=== PATIENT | female | born 1970 | race Caucasian/White ===

== ENCOUNTER 2024-05-02 10:33 | Inpatient (IN) | payer OTHER, SELFPAY ==
[2024-05-02] VITALS (12 sets, daily range): BP systolic 111–136; BP diastolic 58–105; BMI 25.8
[2024-05-02 04:22] LABS: % Basophils 0.6 % (0-2); % Eosinophils 0.7 % (0-6); % Immature Granulocytes 1.4 % (0-0.5); % Lymphocytes 10.9 % (20.5-51.1); % Neutrophils 81.4 % (42.2-75.2); Absolute Basophils 0.1 10^3/uL (0-0.2); Absolute Eosinophils 0.2 10^3/uL (0-0.7); Absolute Immature Granulocytes 0.3 10^3/uL (0-0.05); Absolute Lymphocytes 2.3 10^3/uL (1.2-3.4); Absolute Monocytes 1.1 10^3/uL (0.1-0.6); Absolute Neutrophils 17.1 10^3/uL (1.4-6.5); Hematocrit 43.9 % (37.0-47.0); Hemoglobin 15.7 g/dL (12.0-16.0); Mean Corp Hgb Conc. 35.8 g/dL (33.0-37.0); Mean Corpuscular Hgb 30.5 pg (27.0-31.0); Mean Corpuscular Volume 85.2 fL (81.0-99.0); Mean Platelet Volume 9.3 fL (7.4-10.4); Nucleated Red Blood Cells % 0 %; Platelet Count 310 10^3/uL (130-400); Red Blood Cell Count 5.15 10^6/uL (4.20-5.40); Red Cell Dist. Width 13.5 % (11.5-14.5); White Blood Cell Count 21.1 10^3/uL (4.8-10.8)
[2024-05-02] MEDS: ZOFRAN 4 MG IV ×3 (04:23→12:56)
[2024-05-02] MEDS: DILAUDID 0.5 MG IV (04:25)
[2024-05-02] MEDS: NSS 1000 IV (04:27)
[2024-05-02] MEDS: PROTONIX IV 40 MG IV (04:28)
[2024-05-02 04:38] LABS: ALT (SGPT) 60 U/L (0-35); AST (SGOT) 47 U/L (14-36); Albumin 5.1 g/dl (3.5-5.0); Alkaline Phosphatase 99 U/L (38-126); Blood Urea Nitrogen 12 mg/dl (7-17); Calcium 10.6 mg/dl (8.4-10.2); Carbon Dioxide 17 mmol/L (22-30); Chloride 108 mmol/L (98-107); Estimated Creatinine Clearance 68 ml/min; Glucose 149 mg/dl (70-99); Lipase 156 U/L (23-300); Potassium 3.9 mmol/L (3.5-5.1); Sodium 144 mmol/L (135-145); Total Protein 7.5 g/dl (6.3-8.2); eGFR > 60.00
[2024-05-02 04:46] LABS: Troponin I < 0.012 ng/ml
[2024-05-02] MEDS: DILAUDID 1 MG IV ×2 (05:33→06:24)
[2024-05-02 06:00] LABS: Lactic Acid 3.8 mmol/L (0.7-2.0)
--- NOTE | 2024-05-02 06:16 | ED.GENMED ---
History of Present Illness
General
Chief Complaint: Abdominal Pain
Source: patient
Time Seen by Provider: 05/02/24 06:06
History of Present Illness
History of Present Illness:
54-year-old female presents to the emergency room complaining of abdominal pain, nausea and vomiting. Pain is located in the epigastric region and radiates to her back. Patient states she was asleep and was awoken from sleep by the pain. The pain
is severe. Patient has a history of abdominal pain. Ultimately she was diagnosed with a large ovarian cyst that was resected in February. Patient did not take anything for pain. Patient also has a history of an appendectomy. Nothing seems to make
the pain better or worse.
Past History
Past History
ED Past Medical History: None
Social History
Tobacco: Non-smoker
Alcohol: Occasional
Personal: Single
Living: with family
Phy Exam
Physical Exam
Physical Exam:
General: Awake, Alert, Oriented X3. Patient appears uncomfortable
Vitals: unremarkable
Head: Atraumatic
Eyes: Pupils equal, EOMI
Throat: Airway intact, no exudates, dry mucosa
Neck: Trachea midline
Lungs: Clear and equal b/l
Heart: Regular rate, no murmurs
Abd: Soft, tender to palpation epigastric and right upper quadrant, No pulsatile mass
Neuro: Nonfocal
Skin: Warm, dry, no rash
Extremities: pulses equal b/l, no edema
Course
Orders/Labs/Results
Orders:
Orders
05/02/24 03:21
ECG [Electrocardiogram (*1)] Urgent
Reason for Study: Abdominal Pain
EKG- Treatment ONCE
05/02/24 03:35
IV Insert/Care/Rem.- Treatment PRN
05/02/24 04:12
Complete Blood Count/With Diff Urgent
Comprehensive Metabolic Panel Urgent
Lipase Urgent
Troponin I Urgent
05/02/24 04:15
0.9% Sodium Chloride 1000 ml [Nss] 1,000 ml IV BOLUS
HYDROmorphone [Dilaudid] 0.5 mg IV NOW STA
Ondansetron Injectable [Zofran] 4 mg IV NOW STA
Pantoprazole [Protonix IV] 40 mg IV NOW STA
05/02/24 05:28
US Abdomen Complete/Upper Urgent
Comment:
Reason For Exam: upper abdominal pain
05/02/24 05:29
HYDROmorphone [Dilaudid] 1 mg IV NOW STA
05/02/24 05:39
Lactic Acid Urgent
05/02/24 06:15
HYDROmorphone [Dilaudid] 1 mg IV NOW STA
Lactated Ringers [Lr] 1,000 ml IV BOLUS
Ondansetron Injectable [Zofran] 4 mg IV NOW STA
05/02/24 07:50
CT Abd/pelvis W Iv Cont Urgent
Comment:
Reason For Exam: upper abdominal pain
Abnormal Lab Results
05/02/24 05/02/24
04:12 05:39
WBC 21.1 H 10^3/uL
(4.8-10.8)
Abs Immat Gran (auto) 0.3 H 10^3/uL
(0-0.05)
Absolute Neuts (auto) 17.1 H 10^3/uL
(1.4-6.5)
Absolute Monos (auto) 1.1 H 10^3/uL
(0.1-0.6)
Immature Gran % 1.4 H %
(0-0.5)
Neutrophils % 81.4 H %
(42.2-75.2)
Lymphocytes % 10.9 L %
(20.5-51.1)
Chloride 108 H mmol/L
(98-107)
Carbon Dioxide 17 L mmol/L
(22-30)
Glucose 149 H mg/dl
(70-99)
Lactic Acid 3.8 H mmol/L
(0.7-2.0)
Calcium 10.6 H mg/dl
(8.4-10.2)
AST 47 H U/L
(14-36)
ALT 60 H U/L
(0-35)
Albumin 5.1 H g/dl
(3.5-5.0)
05/02/24 04:12
05/02/24 04:12
Vital Signs
Initial and Last Documented VS:
Initial Vital Signs
Temp Pulse Resp BP Pulse Ox
98.0 F 90 20 127/84 98
05/02/24 03:17 05/02/24 03:17 05/02/24 03:17 05/02/24 03:17 05/02/24 03:17
Last Documented Vital Signs
Temp Pulse Resp BP Pulse Ox
98.0 F 73 21 111/70 97
05/02/24 03:17 05/02/24 08:00 05/02/24 08:00 05/02/24 08:00 05/02/24 08:00
MDM/Problems Addressed
Differential Diagnosis Includes:
cholecystitis, pancreatitis, SBO, gastritis, gastroparesis
MDM/Problems Addressed:
Patient presents with significant upper upper abdominal pain rating to the back. Fairly sudden onset at 130. My initial concern was that patient may have acute cholecystitis or pancreatitis. Patient's labs show a significantly elevated white
blood cell count of 21,000. Chemistry show a mildly low bicarb, elevated lactate and elevated AST and ALT. Troponin is normal. Lipase is normal. Ultrasound did not show any abnormal findings. CT was then ordered. This also is negative for any
acute pathology. Patient has some improvement in her pain after multiple doses of Dilaudid but continues to have some abdominal pain as well as nausea. Patient has significant nausea vomiting abdominal pain without clear etiology apparent based on
testing here in the emergency room. Given her persistent symptoms we will discuss hospitalization with the hospitalist. Patient states she has had some chronic abdominal pain for which a source has not been identified. This may be an exacerbation
of a more chronic issue but given abnormal labs patient will be hospitalized for further treatment evaluation.
Based on unremarkable imaging I did inquire about the patient's medical marijuana use with the thought that perhaps the patient could be suffering from cannabis hyperemesis syndrome. Patient states she uses a tincture and only at night to the seems
and unlikely cause based upon that amount of marijuana use. She seemed offended that I inquired about her marijuana use despite my attempting to explain why I was asking.
Chronic conditions affecting care: Previous abdomnial surgery
*Radiology
Radiology exam reviewed: radiology read reviewed
*Pulse Oximetry
Patient hypoxic: no
*EKG
Interpreted by ED Provider?: Yes
Interpretation: normal
Heart Rate: 74
Rate: normal
Rhythm: sinus
[place]: normal axis
Interval: normal interval
QRS Pattern: normal QRS
Ischemia: no ischemia
*Od Grinder Operator Interpretation
Rate: normal
Interpretation: normal
Rhythm: sinus
*Critical Care Note
Total Time (30-74mins, 75-104mins- exclusive of procedures): Not Applicable
ED Attending Note
-
Portions of this chart may have been created with voice recognition software.� Occasional wrong word or��sound alike� substitutions may have occurred due to the inherent limitations of voice recognition software.
Discharge Plan
Departure
Patient Disposition: Admit
Date of Disposition: 05/02/24
Time of Disposition: 09:23
Presentation/result/management discussed w/ accepting MD/DO: Hospitalist
Condition: Fair
Discharge Problem:
Abdominal pain, Acute dehydration, Leukocytosis
Prescriptions:
No Action
omeprazole [Prilosec] 40 mg Capsule,Delayed Release(Dr/Ec)
40 mg PO DAILY
alprazolam [Xanax] 0.25 mg Tablet
0.25 mg PO DAILY
buspirone [BuSpar] 10 mg Tablet
10 mg PO DAILY
Referrals:
Suyapa Howard MD [Family Provider] -
Interventions
Interventions:
*Risk Screen - Suicide Last Done: 05/02/24 03:17
*General Assessment Last Done: 05/02/24 03:17
*Neglect/Abuse Screening Last Done: 05/02/24 05:20
ED- Fall Risk Assessment Last Done: 05/02/24 04:15
*ED COVID-19 Vaccine History Last Done: 05/02/24 05:20
CW-Actzhf-Ebkurtqurk Assessment Last Done: 05/02/24 04:01
Discharge Date and Time
Print Language: FRISIAN
[2024-05-02] MEDS: LR 1000 IV (06:24)
--- NOTE | 2024-05-02 11:31 | HPS.HSE ---
Addendum entered and electronically signed by Isaac Roy MD 05/03/24 16:12:
abd pain, no acute findings on ctap
lactic acidosis relatede to dehydration, give ivf
gi to eval possible egd. npo after midnight
ivf and antiemetics
Original Note:
Family Physician
-
Family Physician: Nicoel Siegel PA-C
Chief Complaint
-
Abdominal pain, Nausea and vomiting
History of Present Illness
54 year-old female with history of anxiety/depression, PTSD, chronic insomnia, GERD, migraines who presents to the ED with abdominal pain, nausea and vomiting. She woke up this morning drenched in sweats, with some abdominal discomfort and nausea.
Symptoms worsened with increased nausea and retching with minor clear/mucoid vomitus.
She had 5 episodes of non-bloody, loose bowel movements yesterday morning with occasional mucus in stool, and two episodes today.
She reports a chronic, episodic right upper quadrant pain for many years. She has been evaluated by multiple gastroenterologists and had one upper endoscopy with suspicious dudenal biopsy, although patient does not recall details and has not
followed up due to health events/insurance changes. She had a recent right ovarian cyst removed 8 weeks ago, and was told there some adhesions oif the cyst to her bladder and bowel. She was also treated for diverticulitis at the time.
She takes BuSpar for panic disorder, occasional medical marijuana for insomnia and PTSD.
At the time of my evaluation, her symptoms were controlled with antiemetics and analgesics. She denies fever, chest pain/palpitations, bloody stool, or urinary complaints.
Medical History
Past Medical History
Past Medical History: Reports GERD, Psychiatric (PTSD, panic disorder) and Other (migraine)
Past Surgical History: Reports Appendectomy, Brain (craniotomy for meningioma), Gynocological (vaginal hysterectomy, R ovarian cystectomy), Orthopedic (cervical discectomy/spinal fusion) and Tonsilectomy
Social History
Tobacco: Non-smoker
Alcohol: None
Drug: Marijuana (medical marijuana)
Living: With Family
Employment: Employed
Family History
Family History: Not pertinent
Allergies / Home Medications
Allergies reflects when Allergies were last updated in That{img}.
Home Medications with original date entered in That{img}
Allergy/Medication List:
Allergies
Allergy/AdvReac Type Severity Reaction Status Date / Time
levofloxacin [From Levaquin] Allergy Intermediate Rash Verified 05/02/24 03:17
lorazepam [From Ativan] AdvReac Intermediate Unknown Verified 05/02/24 03:17
Home Medications
alprazolam 0.25 mg tablet (Xanax) 0.25 mg PO BIDPRN PRN anxiety 05/02/24
buspirone 10 mg tablet 10 mg PO DAILY Mental Health/Anxiety 05/02/24
buspirone 10 mg tablet 10 mg PO HSPRN PRN stress 05/02/24
omeprazole 40 mg capsule,delayed release 40 mg PO DAILY Gastrointestinal Issue 05/02/24
therapeutic multivitamin 1 tab PO DAILY Supplement 05/02/24
Review of Systems
-
History Source: Patient
Constitutional: Denies Fever or Chills
EENT: Reports Other (difficulty swallowing); Denies Sore Throat
Respiratory: Denies Hemoptysis or Trouble Breathing
Cardiac: Denies Chest Pain, Diaphoresis or Palpitations
Abdomen/GI: Reports Abdominal Pain and Nausea
: Denies Dysuria, Frequency, Difficulty Voiding, Urgency or Bleeding
Physical Exam
Vital Signs
Vital Signs
Temp Pulse Resp BP Pulse Ox
98.0 F 75 18 111/70 98
05/02/24 03:17 05/02/24 10:45 05/02/24 10:45 05/02/24 08:00 05/02/24 10:45
Physical Exam
General: Well Developed and Well Nourished
HEENT: NormoCephalic, Anicteric, Moist mucous membranes and Atraumatic
Respiratory: Clear and Non Labored Respirations; No Wheezes, Rales, Rhonchi or Crackles
Cardiac: S1/S2 and Regular Rhythm; No Murmur, Rub or Calf Tenderness
GI: Soft, Non Distended, Normal Bowel Sounds, Tender (RUQ) and No Hepatosplenomegaly
Skin: Warm and Dry
Neuro: Awake and Alert
Psych: Anxious (tearful)
Laboratory Results
-
05/02/24 04:12
05/02/24 04:12
Laboratory Results
Lactic Acid 3.8 mmol/L (0.7-2.0) H 05/02/24 05:39
Total Bilirubin 1.0 mg/dl (0.2-1.3) 05/02/24 04:12
AST 47 U/L (14-36) H 05/02/24 04:12
ALT 60 U/L (0-35) H 05/02/24 04:12
Alkaline Phosphatase 99 U/L (38-126) 05/02/24 04:12
Troponin I < 0.012 ng/ml 05/02/24 04:12
Lipase 156 U/L (23-300) 05/02/24 04:12
Impression/Plan
-
IMPRESSION: 54 year old female with history of GERD, chronic unspecified abd pain, who presented to the ED with RUQ/epigastric abdominal pain, nausea and vomiting.
PLAN:
Abdominal pain, nausea, vomiting:
Viral gastroenteritis vs pancreatitis, vs gastritis
Elevated WBC with left shift, likely reactive
Abd pel CT unremarkable
Abdominal US unremarkable
Normal Lipase
- Zofran for nausea
- IVF, analgesics
- GI consult
Lactic acidosis:
Secondary to omeprazole adverse effect, vs other cause
Lactate 3.8, Anion gap 19
- Repeat lactate
- Hold omeprazole
Panic disorder:
- Continue Buspar, PRN alprazolam
GERD:
- Omaprazole held for elevated lactate
- Devaughn give famotidine
DVT ppx: Lovenox
Code Status: DNR
[2024-05-02] MEDS: BUSPAR PO (12:21)
[2024-05-02 12:27] LABS: Lactic Acid 1.3 mmol/L (0.7-2.0)
--- NOTE | 2024-05-02 13:19 | CON.GI ---
Addendum entered and electronically signed by Jonelle Conn MD 05/02/24 15:40:
I saw and examined the patient.
The LOCOMOTIVE OPERATOR or PA's note was reviewed and I agree with the note.
Comment:
This patient is a 54-year-old woman with a history of GERD, panic disorder, migraines who was admitted with abdominal pain, nausea and vomiting. On admission she did have an elevated white count and lactate. She did have a normal ultrasound. She
does have a history of abdominal pain in the past and has seen many GIs. She actually had a endoscopy done in [place] in July 2023 when she used to live there. I did review the pathology report and it did show a hyperplastic polyp in
the bulb with noted focal atypia. This polyp had borderline adenomatous changes and it appeared to only have been biopsied. She does also have a history of chronic dysphagia. Currently she has no pain.
abd: soft nontender
impression:
chronic abdominal pain
dysphagia
hx of Duodenal hyperplastic lesion with atypia biopsied
plan:
egd tomorrow
repeat lfts
consider outpatient manometry for dysphagia
Original Note:
Consultation
-
Date/Time Consultation Requested: 05/02/24 1130
Date/Time Consultation Performed: 05/02/24 1320
Requesting Provider: yane zuñiga MD
Performing Provider: WALLACE Armstrong, Jonelle conn MD
Reason for Consultation: abdominal pain
Medical History
Chief Complaint / HPI
Chief Complaint: abdominal pain
History of Present Illness:
Pt is a 54yo with hx GERD, migraines, PTSD, panic disorder, craniotomy for meningioma, hysterectomy, cervical discectomy/fusion, tonsillectomy with onset of abdominal pain with nausea and vomiting. On admission noted with WBC 21,100, lactate 3.8
with normalization, AST 47, aLT 60, alk phos 99 and lipase 156. On admission US completed with unremarkable finding with normal liver and CBD. Ct with hepatic steatosis and diverticulosis no acute finding. In reviewing with patient she has had
multiple GI evaluation with ongoing abdominal pain. She report chronic pressure pain 3/10 then up to 10/10 on admission with wrap around pain to back. She admits to decreased appetite but now wt loss. She did have EGD in [place] in
July of 2023 report not reviewed but path of duodenal bulb gastric metaplasia, mucin loss with focal atypia and borderline adenomatous changes with area of pseudostratification and mild nuclear enlargement. stomach bx neg H pylori.
She otherwise report chronic dysphagia since cervical fusion surgery, GERD on PPI with hx Hiatal hernia, nausea and dry heaves with some difficutly with vomiting and loose stools. She also report shaking chill with pain at onset. No NSAID use,
No new medications or GPL1 use.
Past Medical History
Past Medical History: Cancer (brain meningioma), GERD, Psychiatric (depression/anxiety, PTSD, panic disorder) and Other (insomnia, migraines, hiatal hernia)
Past Surgical History: Appendectomy (at age 2), Brain (craniotomy), Gynecological (vaginal hysterectomy, R ovarian cystectomy with KIERRA 8 weeks ago at [place]), Orthopedic (cervical discectomy/spinal fusion) and Tonsilectomy
Social History
Tobacco: Non-Smoker
Alcohol: None
Drug: Marijuana
Living: With Family
Employment: Employed (currently starting new job but on hold with recent surgery )
Family History
Family History: Other (father with adenomatous polyps)
Allergies / Home Medications
Allergy/AdvReac Type Severity Reaction Status Date / Time
levofloxacin [From Levaquin] Allergy Intermediate Rash Verified 05/02/24 03:17
lorazepam [From Ativan] AdvReac Intermediate Unknown Verified 05/02/24 03:17
�Medication �Instructions �Recorded
alprazolam 0.25 mg tablet (Xanax) 0.25 mg PO BIDPRN PRN anxiety 05/02/24
buspirone 10 mg tablet 10 mg PO DAILY Mental 05/02/24
Health/Anxiety
buspirone 10 mg tablet 10 mg PO HSPRN PRN stress 05/02/24
omeprazole 40 mg capsule,delayed 40 mg PO DAILY Gastrointestinal 05/02/24
release Issue
therapeutic multivitamin 1 tab PO DAILY Supplement 05/02/24
Review of Systems
-
History Source: Patient
Constitutional: Reports Fatigue
EENT: Reports No Symptoms
Respiratory: Reports No Symptoms
Cardiac: Reports No Symptoms
Abdomen/GI: Reports Abdominal Pain, Nausea, Vomiting (small amounts ) and Diarrhea
: Reports No Symptoms
Musculoskeletal: Reports No Symptoms
Skin: Reports No Symptoms
Neurological: Reports No Symptoms
Endocrine: Reports No Symptoms
Hematologic/Lymphatic: Reports No Symptoms
Vital Signs
Temp Pulse Resp BP Pulse Ox
98.3 F 83 20 129/72 98
05/02/24 11:57 05/02/24 11:57 05/02/24 11:57 05/02/24 11:57 05/02/24 10:45
Physical Exam
Exam
General: Well Developed, Well Nourished and No Apparent Distress
HEENT: Normocephalic and Anicteric
Respiratory: Clear
Cardiac: Regular Rhythm
GI: Soft, Non Distended and Tender (RUQ with guarding )
Musculoskeletal: No Clubbing and No Cyanosis
Skin: Warm and Dry
Neuro: Awake, Alert and AO x 3
Psych: Other (anxious with ongoing symptoms )
Results
WBC 21.1 10^3/uL (4.8-10.8) H 05/02/24 04:12
Hgb 15.7 g/dL (12.0-16.0) 05/02/24 04:12
Hct 43.9 % (37.0-47.0) 05/02/24 04:12
MCV 85.2 fL (81.0-99.0) 05/02/24 04:12
Plt Count 310 10^3/uL (130-400) 05/02/24 04:12
Absolute Neuts (auto) 17.1 10^3/uL (1.4-6.5) H 05/02/24 04:12
Sodium 144 mmol/L (135-145) 05/02/24 04:12
Potassium 3.9 mmol/L (3.5-5.1) 05/02/24 04:12
Chloride 108 mmol/L (98-107) H 05/02/24 04:12
Carbon Dioxide 17 mmol/L (22-30) L 05/02/24 04:12
BUN 12 mg/dl (7-17) 05/02/24 04:12
Creatinine 0.8 mg/dL (0.6-1.0) 05/02/24 04:12
Calcium 10.6 mg/dl (8.4-10.2) H 05/02/24 04:12
Total Bilirubin 1.0 mg/dl (0.2-1.3) 05/02/24 04:12
AST 47 U/L (14-36) H 05/02/24 04:12
ALT 60 U/L (0-35) H 05/02/24 04:12
Alkaline Phosphatase 99 U/L (38-126) 05/02/24 04:12
Lipase 156 U/L (23-300) 05/02/24 04:12
Diagnostic Image Results:
05/02/24 Unremarkable abdominal ultrasound.
05/02/24 CT Abd/pelvis W Iv Cont
No acute findings in the abdomen or pelvis.
Hepatic steatosis.
Colonic diverticulosis.
Prior GI Procedures:
EGD:
Colonoscopy:
Assessment / Plan
-
Pt is a 54yo with hx GERD, migraines, PTSD, panic disorder, craniotomy for meningioma, hysterectomy, cervical discectomy/fusion, tonsillectomy with onset of abdominal pain with nausea and vomiting. On admission noted with WBC 21,100, lactate 3.8
with normalization, AST 47, aLT 60, alk phos 99 and lipase 156. On admission US completed with unremarkable finding with normal liver and CBD. Ct with hepatic steatosis and diverticulosis no acute finding. In reviewing with patient she has had
multiple GI evaluation with ongoing abdominal pain. She report chronic pressure pain 3/10 then up to 10/10 on admission with wrap around pain to back. She admits to decreased appetite but now wt loss. She did have EGD in [place] in
July of 2023 report not reviewed but path of duodenal bulb gastric metaplasia, mucin loss with focal atypia and borderline adenomatous changes with area of pseudostratification and mild nuclear enlargement. stomach bx neg H pylori.
-RUQ pain acute on chronic
-leukocytosis
-elevated lactate on admission now improved
-hx EGD 07/2023 with path of duodenal bulb gastric metaplasia, mucin loss with focal atypia and borderline adenomatous changes was due follow up in January not completed
-hx HH
-recent ovarian cyst removal with KIERRA at [place] 8 weeks ago
-chronic dysphagia since cervical surgery
other med problems:
-GERD
-migraines
-PTSD
-panic disorder
-craniotomy for meningioma
-hysterectomy
- cervical discectomy/fusion
- tonsillectomy
-hepatic steatosis on imaging
PLAN:
etiology of abdominal pain related to biliary etiology mild LFT elevation though stable US and CT, PUD, vs other
repeat LFT's and lipase in AM
if LFT's remain elevated consider hepatitis/ OP liver serologies
plan for EGD in AM for follow up for focal atypia changes in EGD in [place] in duodenal bulb
diet as tolerated NPO in AM
pain control
PPI change to pepcid per hospitalist service with elevated lactate level
antiemetics as needed
pt also with some stress/anxiety-with trying to start new job support given
OP follow up for fatty liver
-
-
Thank you for consultation and allowing me to participate in the patient's care. Please call the numerical control machine operator GI physician during the after hours with any questions or concerns.
[2024-05-02] MEDS: DILAUDID 0.25 MG IV (19:40)
[2024-05-02] MEDS: PEPCID 20 MG PO (22:23)
[2024-05-03 07:43] VITALS: BP 116/71
[2024-05-03] MEDS: ZOFRAN 4 MG IV ×3 (08:14→23:08)
[2024-05-03] MEDS: DILAUDID 0.25 MG IV ×2 (08:14→10:21)
[2024-05-03] MEDS: THERAGRAN PO (08:17)
[2024-05-03] MEDS: BUSPAR PO (08:17)
[2024-05-03 09:29] VITALS: BP 137/72; BP_SYST 22
[2024-05-03 09:44] VITALS: BP 135/89; BP_SYST 21
--- NOTE | 2024-05-03 09:45 | SUR.PHASEI ---
Dr. Mcduffie notifed about pt being nauseous and severe abdominal pain. At bedside no new orders. Dr. Gan also notified and at bedside. Pt updated pt on findings and recommendations. No further orders to give. This RN will transport back to room.
[2024-05-03] MEDS: XANAX 0.25 MG PO (09:59)
[2024-05-03] MEDS: COMPAZINE 5 MG IV ×3 (09:59→23:37)
[2024-05-03] MEDS: NSS 1000 IV ×2 (10:13→23:01)
[2024-05-03 10:14] VITALS: BP 145/96
--- NOTE | 2024-05-03 11:08 | W.PN.HOSP.TC ---
Addendum entered and electronically signed by Isaac Roy MD 05/03/24 16:15:
slight bump in lft's
egd did not sbow acute pathology
will check mrcp and hepatitis panel
gi followoing
Original Note:
Today's Communication/Plan
-
For MRCP
Assessment / Plan
Assessment / Plan
Assessment: 54 year old female with history of GERD, chronic unspecified abd pain, who presented to the ED with RUQ/epigastric abdominal pain, nausea and vomiting.
PLAN:
Abdominal pain, nausea, vomiting:
Viral gastroenteritis vs pancreatitis, vs gastritis
Elevated WBC with left shift, likely reactive
Abd pel CT unremarkable. Abdominal US unremarkable
Normal Lipase
S/P EGD: Small hiatal hernia. Mucosal nodule found in the duodenum. awaiting path results.
- Patient in remarkable RUQ pain after EGD. Will get MRCP.
- If LFTs are abnormal, will get hepatitis labs.
- Zofran for nausea
- IVF, analgesics
- Appreciate GI recs
Lactic acidosis:
Secondary to omeprazole adverse effect, vs other cause
Elevated lactate on arrival 3.8, Anion gap 19. Repeat lactate normal 1.3
- Omeprazole still held for possible cause
Panic disorder:
- Continue Buspar, PRN alprazolam
GERD:
- Omaprazole held for elevated lactate
- Will give famotidine
DVT ppx: Lovenox
Code Status: DNR
Anticipated Discharge: Within 24 hours
Subjective/Interval History
-
Date of Service: May 03, 2024
Objective Data
-
Labs:
Laboratory Results
05/03/24
06:00
WBC Pending
Hgb Pending
Hct Pending
Plt Count Pending
Sodium Pending
Potassium Pending
Chloride Pending
Carbon Dioxide Pending
BUN Pending
Creatinine Pending
Glucose Pending
Calcium Pending
Total Bilirubin Pending
AST Pending
ALT Pending
Alkaline Phosphatase Pending
Vital Signs:
Vital Signs
Temp Pulse Resp BP Pulse Ox
97.7 F 68 24 145/96 100
05/03/24 10:14 05/03/24 10:14 05/03/24 10:14 05/03/24 10:14 05/03/24 10:14
I&O
05/02/24 05/03/24 05/04/24
06:59 06:59 06:59
Intake Total 480 / 480
Balance 480 / 480
Review of Systems
-
History Source: Patient
Constitutional: Reports No Appetite; Denies Fever
Respiratory: Denies Cough or Trouble Breathing
Cardiac: Denies Chest Pain
Abdomen/GI: Reports Abdominal Pain (Severe throbbing RUQ ), Nausea and Vomiting
Genitourinary: Denies Dysuria
Physical Exam
-
General: Appears in Distress and Pain
HEENT: Moist Mucous Membranes
Respiratory: Clear to Auscultation and Non Labored Respirations; Negative Wheezes, Rales, Rhonchi or Crackles
Cardiac: Regular Rhythm and S1/S2; Negative Murmur, Rub or Calf Tenderness
GI: Soft, Nondistended, Normal Bowel Sounds, Tender ( significant RUQ tenderness) and No Hepatosplenomegaly
Genito-urinary: No Costovertebral Tender
Musculoskeletal: No Clubbing, No Cyanosis and No Edema
Skin: Warm and Dry
Neuro: Awake and Alert
Psych: Anxious (tearful)
[2024-05-03] MEDS: DILAUDID 0.5 MG IV ×4 (12:44→23:02)
[2024-05-03 13:30] LABS: Hematocrit 40.5 % (37.0-47.0); Hemoglobin 14.1 g/dL (12.0-16.0); Mean Corp Hgb Conc. 34.8 g/dL (33.0-37.0); Mean Corpuscular Hgb 31.3 pg (27.0-31.0); Mean Corpuscular Volume 89.8 fL (81.0-99.0); Red Blood Cell Count 4.51 10^6/uL (4.20-5.40); Red Cell Dist. Width 13.6 % (11.5-14.5); White Blood Cell Count 13.5 10^3/uL (4.8-10.8)
[2024-05-03 13:58] LABS: Mean Platelet Volume 9.5 fL (7.4-10.4); Platelet Count 232 10^3/uL (130-400)
[2024-05-03 14:02] LABS: ALT (SGPT) 62 U/L (0-35); AST (SGOT) 51 U/L (14-36); Albumin 4.4 g/dl (3.5-5.0); Alkaline Phosphatase 80 U/L (38-126); Blood Urea Nitrogen 7 mg/dl (7-17); Calcium 9.2 mg/dl (8.4-10.2); Carbon Dioxide 15 mmol/L (22-30); Chloride 109 mmol/L (98-107); Estimated Creatinine Clearance 77 ml/min; Glucose 110 mg/dl (70-99); Lipase 84 U/L (23-300); Sodium 141 mmol/L (135-145); Total Bilirubin 1.1 mg/dl (0.2-1.3); Total Protein 6.5 g/dl (6.3-8.2); eGFR > 60.00
[2024-05-03 14:35] VITALS: BP 149/66
[2024-05-03] MEDS: PEPCID 20 MG PO (23:02)
[2024-05-03 23:16] VITALS: BP 119/64
--- NOTE | 2024-05-04 01:45 | PTCARENOTE ---
Pt requesting pain meds, when assessing pain level pt tearful, shaking, and spitting saliva into emesis basin. Rating abdominal pain at 8/10. Returned to room when PRN available, pt observed with eyes closed, even respirations, and no shaking at
the time. Pain medicine not given as pt appreared to be comfortable.
[2024-05-04] MEDS: DILAUDID 0.5 MG IV ×4 (05:05→22:44)
[2024-05-04 07:42] VITALS: BP 137/76
[2024-05-04] MEDS: BUSPAR PO (08:50)
[2024-05-04] MEDS: THERAGRAN PO (08:50)
[2024-05-04 08:57] LABS: Hemoglobin 13.6 g/dL (12.0-16.0); Mean Corp Hgb Conc. 34.9 g/dL (33.0-37.0); Mean Corpuscular Hgb 31.4 pg (27.0-31.0); Mean Corpuscular Volume 90.1 fL (81.0-99.0); Mean Platelet Volume 9.6 fL (7.4-10.4); Platelet Count 238 10^3/uL (130-400); Red Blood Cell Count 4.33 10^6/uL (4.20-5.40); Red Cell Dist. Width 13.4 % (11.5-14.5); White Blood Cell Count 15.5 10^3/uL (4.8-10.8)
[2024-05-04 10:06] LABS: ALT (SGPT) 51 U/L (0-35); AST (SGOT) 36 U/L (14-36); Alkaline Phosphatase 70 U/L (38-126); Blood Urea Nitrogen 7 mg/dl (7-17); Calcium 9.2 mg/dl (8.4-10.2); Carbon Dioxide 18 mmol/L (22-30); Chloride 110 mmol/L (98-107); Estimated Creatinine Clearance 77 ml/min; Glucose 75 mg/dl (70-99); Potassium 3.8 mmol/L (3.5-5.1); Sodium 140 mmol/L (135-145); Total Protein 6.1 g/dl (6.3-8.2); eGFR > 60.00
[2024-05-04] MEDS: NSS 1000 IV (10:44)
--- NOTE | 2024-05-04 12:07 | W.PN.HOSP.TC ---
Addendum entered and electronically signed by Isaac Roy MD 05/04/24 13:11:
Seen and examined. No new complaints. No acute overnight events.
Right upper quadrant abdominal pain point tenderness ongoing. Without evidence of triggering events. Barely tolerating a diet intermittent nausea
NAD, resting comfortably in bed
Scleral anicteric
Moist mucous membranes
No JVD
CTA bilateral
Normal S1-S2 no murmurs
Soft right upper quadrant tenderness, no rebound/guarding, tenderness even with stethoscope palpation, nondistended bowel sounds active
No peripheral pitting edema
Moves extremities spontaneously
AAO
Right upper quadrant abdominal which could be biliary colic varices or unclear as to etiology. Will check MRCP to assess for stones or strictures or any other pathology within the biliary/hepatic system as she does have a slight elevation in
transaminitis.
-Should be noted she is s/p EGD without acute findings. Biopsies taken. Will need outpatient GI follow up to review results
-Still with intractable pain
- - IV analgesic dosing changed
-MRCP
-IV antiemetics
- -Monitor QTc
Lactic acid resolved.
Secondary to dehydration
Panic disorder
Continue buspar
Gerd
Continue pepcid, may consider switching back to ppi
Original Note:
Today's Communication/Plan
-
For MRCP today. NPO until MRCP. pain/nausea control. IVF
Assessment / Plan
Assessment / Plan
Assessment: 54 year old female with history of GERD, chronic unspecified abd pain, who presented to the ED with RUQ/epigastric abdominal pain, nausea and vomiting.
PLAN:
Abdominal pain, nausea, vomiting:
Viral gastroenteritis vs pancreatitis, vs gastritis vs billiary cause
Elevated WBC with left shift, likely reactive
Abd pel CT and Abd US unremarkable
Normal Lipase
- S/P EGD: Small hiatal hernia. Mucosal nodule found in the duodenum. No acute findings. awaiting path results/outpt GI follow up
- Ongoing RUQ pain. For MRCP today
- Zofran for nausea
- IVF, analgesics
- Appreciate GI recs
Transaminitis:
- Mildly elevated LFTS on arrival. Resolving
- AST normalized
- Alkphos normal
- Hepatitis panel pending
Lactic acidosis:
Secondary to omeprazole adverse effect, vs other cause
Elevated lactate on arrival 3.8, Anion gap 19. Repeat lactate normal 1.3
- Omeprazole still held for possible cause
Panic disorder:
- Continue Buspar, PRN alprazolam
GERD:
- Omaprazole held for elevated lactate
- Will give famotidine
DVT ppx: Lovenox
Code Status: DNR
Anticipated Discharge: Within 24 hours
Subjective/Interval History
-
Date of Service: May 04, 2024
Ongoing complaint: severe RUQ pain, with nausea/vomiting, diaphoresis and chills
Objective Data
-
Labs:
Laboratory Results
05/04/24
07:58
WBC 15.5 H
Hgb 13.6
Hct 39.0
Plt Count 238
Sodium 140
Potassium 3.8
Chloride 110 H
Carbon Dioxide 18 L
BUN 7
Creatinine 0.7
Glucose 75
Calcium 9.2
Total Bilirubin 1.0
AST 36
ALT 51 H
Alkaline Phosphatase 70
Vital Signs:
Vital Signs
Temp Pulse Resp BP Pulse Ox
98.8 F 95 16 137/76 98
05/04/24 07:42 05/04/24 07:42 05/04/24 07:42 05/04/24 07:42 05/04/24 07:42
I&O
05/03/24 05/04/24 05/05/24
06:59 06:59 06:59
Intake Total 480 / 480 615 / 1575 960 / 960
Balance 480 / 480 615 / 1575 960 / 960
Review of Systems
-
History Source: Patient
Constitutional: Reports No Appetite; Denies Fever
Respiratory: Denies Cough or Trouble Breathing
Cardiac: Reports Diaphoresis; Denies Chest Pain or Palpitations
Abdomen/GI: Reports Abdominal Pain (RUQ), Nausea and Vomiting; Denies Diarrhea or Hematemesis
Genitourinary: Denies Dysuria or Difficulty Voiding
Physical Exam
-
General: Well Developed, Well Nourished and Other (appears uncomfortable)
HEENT: Normocephalic, Atraumatic and Moist Mucous Membranes
Respiratory: Clear to Auscultation and Non Labored Respirations; Negative Wheezes, Rales, Rhonchi or Crackles
Cardiac: Regular Rhythm and S1/S2; Negative Murmur, Rub or Calf Tenderness
GI: Soft, Nondistended, Normal Bowel Sounds and Tender (RUQ tenderness)
Genito-urinary: No Costovertebral Tender
Skin: Warm and Dry
Neuro: Awake and Alert
Psych: Anxious (tearful)
--- NOTE | 2024-05-04 13:03 | W.PN.GI.CBS2 ---
Today's Communication / Plan
-
OK to [place] home for OP f/u
Assessment / Plan
-
Pt is a 54yo with hx GERD, migraines, PTSD, panic disorder, craniotomy for meningioma, hysterectomy, cervical discectomy/fusion, tonsillectomy with onset of abdominal pain with nausea and vomiting. On admission noted with WBC 21,100, lactate 3.8
with normalization, AST 47, aLT 60, alk phos 99 and lipase 156. On admission US completed with unremarkable finding with normal liver and CBD. Ct with hepatic steatosis and diverticulosis no acute finding. In reviewing with patient she has had
multiple GI evaluation with ongoing abdominal pain. She report chronic pressure pain / then up to 10 on admission with wrap around pain to back. She admits to decreased appetite but now wt loss. She did have EGD in [place] in
July of 2023 report not reviewed but path of duodenal bulb gastric metaplasia, mucin loss with focal atypia and borderline adenomatous changes with area of pseudostratification and mild nuclear enlargement. stomach bx neg H pylori.
-RUQ pain acute on chronic
-leukocytosis
-elevated lactate on admission now improved
-hx EGD 07/2023 with path of duodenal bulb gastric metaplasia, mucin loss with focal atypia and borderline adenomatous changes was due follow up in January not completed
-hx HH
-recent ovarian cyst removal with [facility] at [facility] 8 weeks ago
-chronic dysphagia since cervical surgery
other med problems:
-GERD
-migraines
-PTSD
-panic disorder
-craniotomy for meningioma
-hysterectomy
- cervical discectomy/fusion
- tonsillectomy
-hepatic steatosis on imaging
PLAN:
etiology of abdominal pain possibly related to functional dyspepsia ? exacerbated by stress and anxiety and GERD, ultrasound and CT were unremarkable no gallstones noted. Lipase was also normal
Mild elevation of transaminases which have been trending down most likely related to underlying fatty liver will pursue further workup as outpatient
EGD with no obvious etiology for pain found, no ulcers biopsies for H. pylori are pending and duodenal nodule biopsies are also pending. May need repeat endoscopy with EMR of the duodenal polyp or nodule based on pathology with Dr. Negron
Okay to DC home for outpatient follow-up
Will s/o and will be available as needed
Subjective
Subjective
Date of Service: May 04, 2024
Symptoms are improving no further nausea or vomiting and pain is also improving.
Objective
Data Reviewed
Laboratory Data:
Laboratory Results
05/04/24 07:58
05/04/24 07:58
Laboratory Results
Total Bilirubin 1.0 mg/dl (0.2-1.3) 05/04/24 07:58
AST 36 U/L (14-36) 05/04/24 07:58
ALT 51 U/L (0-35) H 05/04/24 07:58
Alkaline Phosphatase 70 U/L (38-126) 05/04/24 07:58
Lipase 84 U/L (23-300) 05/03/24 13:08
Vital Signs and I&O:
Vital Signs
Temp Pulse Resp BP Pulse Ox
98.8 F 95 16 137/76 98
05/04/24 07:42 05/04/24 07:42 05/04/24 07:42 05/04/24 07:42 05/04/24 07:42
I&O
05/03/24 05/04/24 05/05/24
06:59 06:59 06:59
Intake Total 480 / 480 615 / 1575 960 / 960
Balance 480 / 480 615 / 1575 960 / 960
Physical Exam
Physical Exam
Cardiology: Normal Sinus Rhythm
Pulmonary: Clear
GI: Soft, Non Distended, Tender (Mild epigastric and right upper quadrant tenderness) and Normal Bowel Sounds
--- NOTE | 2024-05-04 14:15 | W.DCSUMMARY ---
Discharge Summary
Discharge Data
Date of Admission: 05/02/24
Date of Discharge: 05/05/24
-
Pending Results: Yes
Additional Pending Results:
Hepatitis Panel
Hospital Course
Discharging Physician : Isaac Roy MD; Renuka Blevins MD.
Disposition : Home
Primary care physician : Suyapa Howard MD.
Principal Discharge diagnosis : Acute on chronic RUQ abdominal pain
Chronic Discharge diagnosis : GERD, PTSD, Anxiety, Insomnia, migraines, panic disorder, hepatic steatosis,
Hospital Course :
54 year old female with above PMH presented to the ED on 05/02 with RUQ/epigastric abdominal pain, diaphoresis, chills, nausea and vomiting. On arrival she was afebrile, EKG with marked sinus arrhythmia, otherwise normal. Troponin was normal. Lipase
was normal upon arrival and on repeat. Abdominal US and CT abd/pel showed now acute findings consistent with complaint. EGD showed no acute findings consistent with complaint.
Elevated lactate on arrival. Resolved on retest. Possibly secondary to dehydration. Omeprazole was held in the meantime.
Leukocytosis on arrival, improving.
Liver transaminases were mildly elevated, but trending down/resolved by discharge.
Antiemetics, IV fluids and analgesics were maintained throughout stay.
GERD was managed with Famotidine while admitted.
Hepatitis panel was done, results pending.
Abdominal pain and nausea slowly improved with patient able to tolerate gentle diet. There was no known etiology based on extensive testing done wile admitted. She remained hemodynamically stable throughout stay, and is otherwise stable for
discharge to home. Outpatient follow up with gastroenterology is recommended. Hepatitis panel results and endoscopic biopsy path results will be discussed at GI visit. She is being discharged on Omeprazole 40mg in the morning, and Famotidine 40mg in
the evening, with as needed Ondansetron for nausea/vomiting.
Important imaging findings :
Abd ultrasound 05/02: Unremarkable abdominal ultrasound.
CT abd/pel 05/02: No acute findings in the abdomen or pelvis. Hepatic steatosis. Colonic diverticulosis.
MRCP 05/02:
Procedure findings :
Upper GI endoscopy 05/03:
- Normal esophagus.
- Small hiatal hernia.
- Mucosal nodule found in the duodenum. Biopsied
- Normal first portion of the duodenum and second portion of the duodenum.
- Biopsies were taken with a cold forceps for evaluation of eosinophilic esophagitis.
- Biopsies were taken with a cold forceps for Helicobacter pylori testing.
Discharge Plan
-
Patient Disposition: Home (Routine Discharge)
Discharge Diagnosis/Procedures: Abdominal pain, nausea and vomiting, Upper GI endoscopy
Diet: No restrictions
Activity: No restrictions
Driving Restrictions: As prior to admission
Bathing Restrictions: None
Blood Work: Hepatitis panel has not returned
Instructions: Abdominal Pain
Stand Alone Forms: Return to Work
Referrals:
Suyapa Howard MD [Family Provider] -
Keisha Gan MD [Active] -
Additional Discharge Medication Instructions: Please follow up with Dr. Gan shortly to discuss your symptoms and pending results.
Take Omeprazole 40mg in the morning, and Famotidine 40mg at night everyday.
You can take Zofran as needed if you have nausea/vomiting.
Prescriptions:
New
ondansetron 4 mg tablet,disintegrating
4 mg PO Q8H PRN (Reason: nausea and vomiting) Qty: 10 0RF
famotidine 40 mg tablet
40 mg PO HS Qty: 30 0RF
Continued
omeprazole 40 mg Capsule,Delayed Release(Dr/Ec)
40 mg PO DAILY
alprazolam [Xanax] 0.25 mg Tablet
0.25 mg PO BIDPRN PRN (Reason: anxiety)
Patient Comments:
05/02/2024: last filled 11/05/23, 60 tabs for 30 days fro [facility]
buspirone 10 mg Tablet
10 mg PO DAILY
therapeutic multivitamin Tablet
1 tab PO DAILY
buspirone 10 mg tablet
10 mg PO HSPRN PRN (Reason: stress)
Discharge Orders:
Discharge Patient (As Directed); Ordered 05/05/24
Ordered By: Renuka Blevins
Discharge Date and Time
Discharge Date/Time: 05/05/24 12:49
Print Language: BENGALI
--- NOTE | 2024-05-04 14:40 | CM ---
Alert awake oriented patient who lives with her son Louie in a 2 story home with 1 step to enter and 15 steps to bed/bathroom.She is independent in driving and in all activities of daily living.Offered VN she declined.
No adaptive devices
Never had VN/SNF
Pharmacy [facility]
PCP Dr Howard
PLAN No needs
[2024-05-04] MEDS: PEPCID 20 MG PO (21:13)
[2024-05-04] MEDS: TYLENOL 1000 MG PO (21:13)
[2024-05-04] MEDS: FLUSH (NSS) 1 FLUSH IV (22:45)
[2024-05-04 23:31] VITALS: BP 128/76
[2024-05-05] MEDS: ZOFRAN 4 MG IV (04:15)
[2024-05-05] MEDS: DILAUDID 0.5 MG IV (04:15)
[2024-05-05] MEDS: FLUSH (NSS) 2 FLUSH IV (04:16)
[2024-05-05 07:00] VITALS: BP 128/88
[2024-05-05] MEDS: BUSPAR 10 MG PO (08:53)
[2024-05-05] MEDS: THERAGRAN 1 TABLET PO (08:53)
[2024-05-05] MEDS: PROTONIX 40 MG PO (08:54)
[2024-05-05] MEDS: TYLENOL 1000 MG PO (09:10)
[2024-05-05 09:48] LABS: Hemoglobin 14.3 g/dL (12.0-16.0); Mean Corp Hgb Conc. 35.8 g/dL (33.0-37.0); Mean Corpuscular Hgb 30.7 pg (27.0-31.0); Mean Corpuscular Volume 85.8 fL (81.0-99.0); Mean Platelet Volume 9.6 fL (7.4-10.4); Platelet Count 261 10^3/uL (130-400); Red Blood Cell Count 4.66 10^6/uL (4.20-5.40); Red Cell Dist. Width 13.4 % (11.5-14.5); White Blood Cell Count 13.1 10^3/uL (4.8-10.8)
[2024-05-05 10:16] LABS: ALT (SGPT) 53 U/L (0-35); AST (SGOT) 39 U/L (14-36); Albumin 4.3 g/dl (3.5-5.0); Alkaline Phosphatase 74 U/L (38-126); Blood Urea Nitrogen 7 mg/dl (7-17); Calcium 9.3 mg/dl (8.4-10.2); Carbon Dioxide 20 mmol/L (22-30); Chloride 104 mmol/L (98-107); Estimated Creatinine Clearance 90 ml/min; Glucose 82 mg/dl (70-99); Potassium 3.7 mmol/L (3.5-5.1); Sodium 140 mmol/L (135-145); Total Protein 6.5 g/dl (6.3-8.2); eGFR > 60.00
--- NOTE | 2024-05-05 13:54 | CM ---
Md entered order for discharge planning.
Spoke with pt she siad she in ready for dc to home.
Son here to drive her home.
Offered VN she declined need .
PLAN Home no needs
--- NOTE | 2024-05-05 14:20 | W.PN.HOSP.TC ---
Today's Communication/Plan
-
Stable for discharge; DC planning with GI follow up recommended
Assessment / Plan
Assessment / Plan
Assessment: 54 year old female with history of GERD, chronic unspecified abd pain, who presented to the ED with RUQ/epigastric abdominal pain, nausea and vomiting.
PLAN:
Abdominal pain, nausea, vomiting:
Viral gastroenteritis vs pancreatitis, vs gastritis vs billiary cause
Elevated WBC with left shift, likely reactive
Abd pel CT and Abd US unremarkable
Normal Lipase
Symptoms have improved today
- S/P EGD: Small hiatal hernia. Mucosal nodule found in the duodenum. No acute findings. awaiting path results/outpt GI follow up
- MRCP with no acute findings
- Zofran for nausea
- IVF, analgesics
- Appreciate GI recs
- Stable for discharge. Will need GI follow up
Transaminitis:
- Mildly elevated LFTS. Slow downtrend
- Alkphos normal
- Hepatitis panel pending
- Recommend outpatient GI f/u
Elevated lactate:
3.8, Normalized on repeat testing after IVF 1.3
Likely secondary to dehydration vs omeprazole adverse effect, vs other cause
- Will restart omeprazole
Panic disorder:
- Continue Buspar, PRN alprazolam
GERD:
- Omaprazole held for elevated lactate
- Resume
DVT ppx: Lovenox
Code Status: DNR
Anticipated Discharge: Today
Subjective/Interval History
-
Date of Service: May 05, 2024
Objective Data
-
Labs:
Laboratory Results
05/05/24
09:02
WBC 13.1 H
Hgb 14.3
Hct 40.0
Plt Count 261
Sodium 140
Potassium 3.7
Chloride 104
Carbon Dioxide 20 L
BUN 7
Creatinine 0.6
Glucose 82
Calcium 9.3
Total Bilirubin 1.0
AST 39 H
ALT 53 H
Alkaline Phosphatase 74
Vital Signs:
Vital Signs
Temp Pulse Resp BP Pulse Ox
98.4 F 86 17 128/88 98
05/05/24 07:00 05/05/24 07:00 05/05/24 07:00 05/05/24 07:00 05/05/24 07:00
I&O
05/04/24 05/05/24 05/06/24
06:59 06:59 06:59
Intake Total 5 / 5 1959
Balance 615 / 1575 1959
Review of Systems
-
History Source: Patient
Constitutional: Reports Other (reduced appetite)
Respiratory: Denies Cough or Trouble Breathing
Cardiac: Denies Chest Pain or Palpitations
Abdomen/GI: Reports Abdominal Pain (RUQ) and Nausea
Genitourinary: Denies Dysuria or Difficulty Voiding
Physical Exam
-
General: Well Developed, Well Nourished and Comfortable
HEENT: Normocephalic and Atraumatic
Respiratory: Clear to Auscultation and Non Labored Respirations; Negative Wheezes, Rales, Rhonchi or Crackles
Cardiac: Regular Rhythm and S1/S2; Negative Murmur, Rub or Calf Tenderness
GI: Soft, Nontender, Nondistended, Normal Bowel Sounds and No Hepatosplenomegaly
Skin: Warm and Dry
Neuro: Awake and Alert
Psych: Calm
[2024-05-06 22:54] LABS: Hepatitis B Core Ab, IgM Negative (Negative)
[2024-05-07 01:09] LABS: Hepatitis B Surface Antigen Negative (Negative)
[2024-05-07 01:27] LABS: Hepatitis B Core Ab, Total Negative (Negative); Hepatitis B Surface Antibody Positive; Hepatitis C Antibody Negative (Negative)
[2024-05-07 01:28] LABS: Hepatitis A Antibody, Total Negative (Negative)
== END 2024-05-05 12:49 | disposition home or self-care (01) | DRG 392 ==
LOC: 3 WEST ACU 10:33
PROVIDERS: Emergency Medicine; Internal Medicine Gastroenterology; Nurse Practitioner Adult Health; Student in an Organized Health Care Education/Training Program; ADMITTING PHYSICIAN Hospitalist; CONSULT PHYSICIAN Internal Medicine; EMERGENCY PHYSICIAN Emergency Medicine; FAMILY PHYSICIAN Family Medicine
PROC: 0DB68ZX Excision of Stomach, Via Natural or Artificial Opening Endoscopic, Diagnostic (ICD-10-PCS; 2024-05-03)
PROC: 0DB18ZX Excision of Upper Esophagus, Via Natural or Artificial Opening Endoscopic, Diagnostic (ICD-10-PCS; 2024-05-03)
PROC: 0DB38ZX Excision of Lower Esophagus, Via Natural or Artificial Opening Endoscopic, Diagnostic (ICD-10-PCS; 2024-05-03)
PROC: 0DB98ZX Excision of Duodenum, Via Natural or Artificial Opening Endoscopic, Diagnostic (ICD-10-PCS; 2024-05-03)
DX: A08.4 Viral intestinal infection, unspecified (principal); E87.20 Acidosis, unspecified; K20.0 Eosinophilic esophagitis; K44.9 Diaphragmatic hernia without obstruction or gangrene; F41.0 Panic disorder [episodic paroxysmal anxiety]; K21.9 Gastro-esophageal reflux disease without esophagitis; E86.0 Dehydration
CPT/HCPCS: 88305; 74177; 74181; 76700; 80053; 83605; 83690; 84484; 85025; 85027; 86704; 86705; 86706; 86708; 86803; 87340; 88342; 93005; 96361; 96374; 96375; 96376; 99285; Q9967

== ENCOUNTER 2024-05-20 13:29 | Emergency (ER) | payer OTHER, SELFPAY ==
[2024-05-20 13:47] VITALS: BP 143/92
--- NOTE | 2024-05-20 13:50 | ED.GENMED ---
ED Provider Triage
<Joseph Camacho PA-C - Last Filed: 05/20/24 13:51>
-
Patient seen by provider in Triage?: Seen in Triage
54-year-old female presents with sudden onset epigastric abdominal pain that radiates to her back. This started at 4 AM this morning. She was admitted to this hospital at the end of last month with similar discomfort. She has acute on chronic
right upper quadrant pain then. She had an ultrasound of the abdomen, CT of the abdomen while here had an endoscopy as well as ERCP. The pain does radiate to the left arm slightly. She notes some chest pain associated with it. She is vomiting in
triage.
EKG labs including troponin were ordered. Held off on imaging secondary to recent full workup
History of Present Illness
<Joseph Camacho PA-C - Last Filed: 05/20/24 13:51>
General
Chief Complaint: Abdominal Symptoms
Time Seen by Provider: 05/20/24 14:32
<Abbie Anderson PA-C - Last Filed: 05/20/24 19:31>
General
Source: patient and family
Exam Limitations: none
Nursing documentation reviewed up to this point in time: agreed with
History of Present Illness
History of Present Illness:
Patient is a 54-year-old female with past medical history of migraine headaches, Graves' disease, PTSD for which she takes BuSpar and Xanax, hiatal hernia, who presents to the emergency department accompanied by her son's girlfriend for evaluation
of severe epigastric pain. Patient reports that she ate a turkey sandwich last night for dinner. She denies that it was spicy, acidic, fried, or fatty. She reports that she went to bed in her usual state of health. She reports that she woke up
early in the morning and felt anxious. She reports that she took her medication and took a short walk. Patient reports that afterwards, the pain started and progressively became more severe. Patient reports the pain is located directly in the
center of her mid epigastrium. She reports that it does radiate into her back and a little bit into her left shoulder. Patient denies shortness of breath or difficulty breathing. She does endorse nausea and vomiting. Patient reports that her
last bowel movement was this morning and was normal. Patient reports that she was seen in this hospital about a month ago for a similar presentation however she reports that the pain at that time was located in her right upper abdomen and this pain
is located in her mid epigastrium. At that time, the patient had a CT of the abdomen and pelvis, ultrasound of her right upper quadrant, and was ultimately admitted. During her admission she had an MRCP as well as an endoscopy. No abnormalities
were found and the patient gradually improved and was subsequently discharged to home. Patient was encouraged to follow-up with GI but she has not done so yet. Patient reports that she does take Prilosec daily as prescribed.
Past History
<Joseph Camacho PA-C - Last Filed: 05/20/24 13:51>
Past History
ED Past Medical History: None
Social History
Tobacco: Non-smoker
Alcohol: Occasional
Personal: Single
Living: with family
Review of Systems
<Abbie Anderson PA-C - Last Filed: 05/20/24 19:31>
Review of Systems
All Other Systems: ROS reviewed and negative except as documented in HPI and ROS
Constitutional: Reports no symptoms
EENT: Reports no symptoms
Respiratory: Reports no symptoms
Cardiac: Reports no symptoms
ABD/GI: Reports abdominal pain, nausea and vomiting; Denies diarrhea, bloody stools or black stools
: Reports no symptoms
Musculoskeletal: Reports no symptoms
Skin: Reports no symptoms
Neurological: Reports no symptoms
Endocrine: Reports no symptoms
Hematologic/Lymphatic: Reports no symptoms
Psychiatric: Reports no symptoms
Phy Exam
<Abbie Anderson PA-C - Last Filed: 05/20/24 19:31>
General Physical Exam
General Presentation: well appearing and no apparent distress
General Skin: warm and dry
General Habitus: normal
General Mental: alert
General Hydration: appears well hydrated
ENT Exam
ENT Exam: EOMI, pharynx normal, neck supple and normocephalic
Eye Exam
Eye Exam: PERRL, cornea clear and conjunctiva normal
Cardiovascular Exam
Cardiovascular Exam: regular rate/rhythm, no edema, no murmur and normal peripheral pulses
Pulmonary Exam
Pulmonary Exam: lungs clear, no respiratory distress, no rales, no crackles, no rhonchi, no stridor, no wheezing and no cough
Gastrointestinal Exam
Gastrointestinal Exam: normal bowel sounds, soft, no organomegaly, no pulsatile mass and non distended
Palpation: generalized: Moderate tenderness (mid-epigastric)
Neurological Exam
Neurological Exam: alert, oriented x3, no motor deficits and speech normal
Musculoskeletal Exam
Musculoskeletal Exam: full ROM and no edema
Skin Exam
Skin Exam: normal color, warm/dry, no rash and no petechia
Psychiatric Exam
Psychiatric Exam: normal mood/affect
Course
<Joseph Camacho PA-C - Last Filed: 05/20/24 13:51>
Orders/Labs/Results
Orders:
Orders
05/20/24 13:32
Electrocardiogram (*1) Urgent
Reason for Study: Abdominal Pain
EKG- Treatment ONCE
05/20/24 14:05
Complete Blood Count/With Diff Urgent
Comprehensive Metabolic Panel Urgent
Lipase Urgent
Troponin I Urgent
05/20/24 14:20
Ketorolac [Toradol] 30 mg .ROUTE .STK-MED ONE
05/20/24 14:21
Ketorolac [Toradol] 30 mg IV NOW STA
05/20/24 14:46
0.9% Sodium Chloride 1000 ml [Nss] 1,000 ml IV BOLUS
Famotidine [Pepcid] 20 mg IV NOW STA
Morphine Sulfate 4 mg IV NOW STA
Ondansetron Injectable [Zofran] 4 mg IV NOW STA
05/20/24 14:51
CR Chest - 2 Views Urgent
Comment:
Reason For Exam: severe epigastric pain, vomiting
05/20/24 15:36
Haloperidol Lactate [Haldol] 2.5 mg IV NOW STA
Abnormal Lab Results
05/20/24
14:05
WBC 13.9 H 10^3/uL
(4.8-10.8)
Plt Count 449 H 10^3/uL
(130-400)
Abs Immat Gran (auto) 0.1 H 10^3/uL
(0-0.05)
Absolute Neuts (auto) 12.6 H 10^3/uL
(1.4-6.5)
Absolute Lymphs (auto) 0.9 L 10^3/uL
(1.2-3.4)
Immature Gran % 1.0 H %
(0-0.5)
Neutrophils % 90.5 H %
(42.2-75.2)
Lymphocytes % 6.5 L %
(20.5-51.1)
Monocytes % 1.5 L %
(1.7-9.3)
Carbon Dioxide 16 L mmol/L
(22-30)
Glucose 155 H mg/dl
(70-99)
Calcium 10.5 H mg/dl
(8.4-10.2)
AST 41 H U/L
(14-36)
ALT 50 H U/L
(0-35)
Albumin 5.1 H g/dl
(3.5-5.0)
05/20/24 14:05
05/20/24 14:05
Vital Signs
Initial and Last Documented VS:
Initial Vital Signs
Temp Pulse Resp BP Pulse Ox
97.5 F 103 22 143/92 100
05/20/24 13:47 05/20/24 13:47 05/20/24 13:47 05/20/24 13:47 05/20/24 13:47
Last Documented Vital Signs
Temp Pulse Resp BP Pulse Ox
97.5 F 105 20 106/67 90
05/20/24 13:47 05/20/24 17:45 05/20/24 17:45 05/20/24 17:00 05/20/24 17:45
<Abbie Anderson PA-C - Last Filed: 05/20/24 19:31>
Orders/Labs/Results
Orders:
Orders
05/20/24 13:32
Electrocardiogram (*1) Urgent
Reason for Study: Abdominal Pain
EKG- Treatment ONCE
05/20/24 14:05
Complete Blood Count/With Diff Urgent
Comprehensive Metabolic Panel Urgent
Lipase Urgent
Troponin I Urgent
05/20/24 14:20
Ketorolac [Toradol] 30 mg .ROUTE .STK-MED ONE
05/20/24 14:21
Ketorolac [Toradol] 30 mg IV NOW STA
05/20/24 14:46
0.9% Sodium Chloride 1000 ml [Nss] 1,000 ml IV BOLUS
Famotidine [Pepcid] 20 mg IV NOW STA
Morphine Sulfate 4 mg IV NOW STA
Ondansetron Injectable [Zofran] 4 mg IV NOW STA
05/20/24 14:51
CR Chest - 2 Views Urgent
Comment:
Reason For Exam: severe epigastric pain, vomiting
05/20/24 15:36
Haloperidol Lactate [Haldol] 2.5 mg IV NOW STA
Abnormal Lab Results
05/20/24
14:05
WBC 13.9 H 10^3/uL
(4.8-10.8)
Plt Count 449 H 10^3/uL
(130-400)
Abs Immat Gran (auto) 0.1 H 10^3/uL
(0-0.05)
Absolute Neuts (auto) 12.6 H 10^3/uL
(1.4-6.5)
Absolute Lymphs (auto) 0.9 L 10^3/uL
(1.2-3.4)
Immature Gran % 1.0 H %
(0-0.5)
Neutrophils % 90.5 H %
(42.2-75.2)
Lymphocytes % 6.5 L %
(20.5-51.1)
Monocytes % 1.5 L %
(1.7-9.3)
Carbon Dioxide 16 L mmol/L
(22-30)
Glucose 155 H mg/dl
(70-99)
Calcium 10.5 H mg/dl
(8.4-10.2)
AST 41 H U/L
(14-36)
ALT 50 H U/L
(0-35)
Albumin 5.1 H g/dl
(3.5-5.0)
05/20/24 14:05
05/20/24 14:05
Vital Signs
Initial and Last Documented VS:
Initial Vital Signs
Temp Pulse Resp BP Pulse Ox
97.5 F 103 22 143/92 100
05/20/24 13:47 05/20/24 13:47 05/20/24 13:47 05/20/24 13:47 05/20/24 13:47
Last Documented Vital Signs
Temp Pulse Resp BP Pulse Ox
97.5 F 105 20 106/67 90
05/20/24 13:47 05/20/24 17:45 05/20/24 17:45 05/20/24 17:00 05/20/24 17:45
<Abbie Anderson PA-C - Last Filed: 05/20/24 19:31>
*EKG
Interpreted by ED Provider?: Yes
EKG Intrepretation Date: 05/20/24
EKG Intrepretation Time: 01:43
Interpretation: normal
Comparison EKG: no changes
Heart Rate: 81
Rate: normal
Rhythm: sinus
[place]: normal axis
Interval: normal interval
QRS Pattern: normal QRS
Ischemia: no ischemia
*Critical Care Note
Total Time (30-74mins, 75-104mins- exclusive of procedures): Not Applicable
<Abbie Anderson PA-C - Last Filed: 05/20/24 19:31>
Update Note
Update Note:
54-year-old female with past medical history as noted presents to the emergency department for evaluation of severe midepigastric pain. Patient does endorse some radiation into her back and to her left shoulder. Patient also notes nausea and
vomiting. On arrival, patient is mildly tachycardic to 103 bpm, mildly hypertensive to 143/92, afebrile. On exam, patient is writhing around in the stretcher, unable to get comfortable, has a emesis basin which has a scant amount of coffee-ground
emesis and it, with moderate midepigastric tenderness without rebound or guarding. While the patient was in the waiting room labs were performed which demonstrate a leukocytosis to 13.9 with a left shift, it appears that she had a similar
leukocytosis during her most recent hospitalization about a month ago, CO2 is low at 16, troponin is negative. The remainder of the patient's labs are nonactionable. Will obtain a chest x-ray to rule out free air to the diaphragm, provide the
patient with antiemetics, H2 jose antonio, analgesia, and reassess.
CXR demonstrates NAD. Patient continues to have pain and dry heaving after ketorolac, famotidine, ondansetron, and IVF. Will give a dose of Haldol and reassess.
Pt reassessed after Haldol. She states significant improvement in pain, nausea, and vomiting. Patient able to tolerate small sips of fluid without increasing pain and without vomiting. Patient is safe for discharge to home, I encouraged the
patient to follow-up closely with her entomology teacher for definitive diagnosis and treatment. Patient educated on strict return precautions, she expressed understanding of the plan and agreed.
ED Attending Note
<Joseph Camacho PA-C - Last Filed: 05/20/24 13:51>
-
Portions of this chart may have been created with voice recognition software.� Occasional wrong word or��sound alike� substitutions may have occurred due to the inherent limitations of voice recognition software.
Discharge Plan
Departure
Patient Disposition: Home (Routine Discharge)
Date of Disposition: 05/20/24
Time of Disposition: 17:41
Patient with high blood pressure during this ER visit?: Yes
Condition: Good
Covid-19: Not Applicable
Discharge Problem:
Abdominal pain, Nausea and vomiting
Instructions: Nausea and Vomiting, Adult (DC), Abdominal Pain
Prescriptions:
No Action
omeprazole 40 mg Capsule,Delayed Release(Dr/Ec)
40 mg PO DAILY
alprazolam [Xanax] 0.25 mg Tablet
0.25 mg PO BIDPRN PRN (Reason: anxiety)
Patient Comments:
05/02/2024: last filled 11/05/23, 60 tabs for 30 days fro [facility]
buspirone 10 mg Tablet
10 mg PO DAILY
therapeutic multivitamin Tablet
1 tab PO DAILY
buspirone 10 mg tablet
10 mg PO HSPRN PRN (Reason: stress)
ondansetron 4 mg tablet,disintegrating
4 mg PO Q8H PRN (Reason: nausea and vomiting) Qty: 10 0RF
famotidine 40 mg tablet
40 mg PO HS Qty: 30 0RF
Referrals:
Allegra Wetzel CRNP [Non-Admitting Privileges] - Follow up in 2-3 days
Activity Restrictions/Additional Instructions:
You were seen in the emergency department for evaluation of upper abdominal pain, associated with nausea and vomiting. While you were in the emergency department, you had an EKG, blood work, and a chest x-ray performed. No dangerous abnormalities
were found and you felt better after receiving medication. Please continue to drink small sips of liquids. If you start to feel hungry, eat a bland diet such as bananas, rice, applesauce, and toast. Please follow-up with your PCP and your
entomology teacher for further evaluation. Please return to the emergency department if you develop worsening abdominal pain, persistent vomiting, fever greater than 100.4F, if you pass out or feel like you are going to pass out, or for any other
worsening or concerning symptoms.
Interventions
Interventions:
*Risk Screen - Suicide Last Done: 05/20/24 13:47
*General Assessment Last Done: 05/20/24 13:47
*Neglect/Abuse Screening Last Done: 05/20/24 13:50
ED- Fall Risk Assessment Last Done: 05/20/24 18:27
*ED COVID-19 Vaccine History Last Done: 05/20/24 13:47
*Nursing Disposition Last Done: 05/20/24 18:27
GG-Fuzhpk-Wqigeebyfs Assessment Last Done: 05/20/24 15:19
Discharge Date and Time
Discharge Date/Time: 05/20/24 18:27
Print Language: BELIZEAN
[2024-05-20 14:03] VITALS: BP 127/79
[2024-05-20 14:13] LABS: % Basophils 0.4 % (0-2); % Eosinophils 0.1 % (0-6); % Lymphocytes 6.5 % (20.5-51.1); % Monocytes 1.5 % (1.7-9.3); % Neutrophils 90.5 % (42.2-75.2); Absolute Basophils 0.1 10^3/uL (0-0.2); Absolute Immature Granulocytes 0.1 10^3/uL (0-0.05); Absolute Lymphocytes 0.9 10^3/uL (1.2-3.4); Absolute Monocytes 0.2 10^3/uL (0.1-0.6); Absolute Neutrophils 12.6 10^3/uL (1.4-6.5); Hematocrit 43.6 % (37.0-47.0); Hemoglobin 15.4 g/dL (12.0-16.0); Mean Corp Hgb Conc. 35.3 g/dL (33.0-37.0); Mean Corpuscular Hgb 30.1 pg (27.0-31.0); Mean Corpuscular Volume 85.3 fL (81.0-99.0); Mean Platelet Volume 8.6 fL (7.4-10.4); Nucleated Red Blood Cells % 0 %; Platelet Count 449 10^3/uL (130-400); Red Blood Cell Count 5.11 10^6/uL (4.20-5.40); Red Cell Dist. Width 13.3 % (11.5-14.5); White Blood Cell Count 13.9 10^3/uL (4.8-10.8)
[2024-05-20] MEDS: TORADOL 30 MG IV (14:21)
[2024-05-20 14:26] LABS: ALT (SGPT) 50 U/L (0-35); AST (SGOT) 41 U/L (14-36); Albumin 5.1 g/dl (3.5-5.0); Alkaline Phosphatase 106 U/L (38-126); Blood Urea Nitrogen 14 mg/dl (7-17); Calcium 10.5 mg/dl (8.4-10.2); Carbon Dioxide 16 mmol/L (22-30); Chloride 106 mmol/L (98-107); Glucose 155 mg/dl (70-99); Lipase 109 U/L (23-300); Potassium 4.2 mmol/L (3.5-5.1); Sodium 141 mmol/L (135-145); Total Bilirubin 1.1 mg/dl (0.2-1.3); Total Protein 7.5 g/dl (6.3-8.2); eGFR > 60.00
[2024-05-20 14:38] LABS: Troponin I < 0.012 ng/ml
[2024-05-20] MEDS: PEPCID 20 MG IV (14:56)
[2024-05-20] MEDS: ZOFRAN 4 MG IV (14:56)
[2024-05-20] MEDS: MORPHINE SULFATE 4 MG IV (14:56)
[2024-05-20] MEDS: NSS 1000 IV (14:57)
[2024-05-20 15:01] VITALS: BP 138/86
[2024-05-20] MEDS: HALDOL 2.5 MG IV (15:41)
[2024-05-20 16:46] VITALS: BP 147/129
[2024-05-20 17:00] VITALS: BP 106/67
== END 2024-05-20 18:27 | disposition home or self-care (01) ==
LOC: EMR 13:29
PROVIDERS: Physician Assistant; EMERGENCY PHYSICIAN Emergency Medicine; FAMILY PHYSICIAN Nurse Practitioner Family; REFERRING PHYSICIAN Nurse Practitioner Family
DX: R10.13 Epigastric pain (principal); R11.2 Nausea with vomiting, unspecified; E05.00 Thyrotoxicosis with diffuse goiter without thyrotoxic crisis or storm; F43.10 Post-traumatic stress disorder, unspecified; K44.9 Diaphragmatic hernia without obstruction or gangrene
CPT/HCPCS: 99283; 96374; 96375; 96361; 71046; 80053; 83690; 84484; 85025; 93005

== ENCOUNTER → 2024-07-30 13:53 | Outpatient (REF) | payer BC, SELFPAY | LOC: RAD 13:53 | PROVIDERS: ATTENDING PHYSICIAN Physician Assistant | DX: R22.1 Localized swelling, mass and lump, neck (principal) | CPT/HCPCS: 70491; Q9967 ==

== ENCOUNTER → 2024-08-24 08:26 | Outpatient (REF) | payer BC, SELFPAY | LOC: RAD 08:26 | PROVIDERS: ATTENDING PHYSICIAN Anesthesiology; FAMILY PHYSICIAN Family Medicine | DX: M54.2 Cervicalgia (principal); M43.02 Spondylolysis, cervical region | CPT/HCPCS: 72050 ==

== ENCOUNTER → 2024-12-07 08:18 | Outpatient (REF) | payer BC, SELFPAY | LOC: RAD 08:18 | PROVIDERS: ATTENDING PHYSICIAN Physician Assistant | DX: M54.16 Radiculopathy, lumbar region (principal) | CPT/HCPCS: 72110 ==

== ENCOUNTER → 2024-12-26 17:28 | Outpatient (REF) | payer BC, SELFPAY | LOC: WDC 17:28 | PROVIDERS: ATTENDING PHYSICIAN Physician Assistant | DX: Z12.31 Encounter for screening mammogram for malignant neoplasm of breast (principal) | CPT/HCPCS: 77063; 77067 ==

== ENCOUNTER 2025-01-04 21:36 | Emergency (ER) | payer BC, SELFPAY ==
[2025-01-04 21:45] VITALS: BP 136/85
[2025-01-04 22:16] VITALS: BMI 27.0
--- NOTE | 2025-01-04 22:19 | EDRN ---
After eating, pt got severe gas pain, went to the bathroom and had nonstop diarrhea for 7 minutes. Pain caused pt to hyperventilate. Pt has pain RUQ and epigastric area. Nausea, no vomiting. Pt has diaphoresis. No fever/chills/cough, urinary
symptoms. No medications taken for symptoms. Pt ate takeout - [employer]. Pt had similar symptoms RUQ but not in the epigastric area. Pt has HIDA scan scheduled for January 23.
[2025-01-04 22:34] LABS: % Basophils 0.7 % (0-2); % Eosinophils 1.3 % (0-6); % Lymphocytes 11.5 % (20.5-51.1); % Monocytes 4.4 % (1.7-9.3); % Neutrophils 81.1 % (42.2-75.2); Absolute Basophils 0.1 10^3/uL (0-0.2); Absolute Eosinophils 0.2 10^3/uL (0-0.7); Absolute Immature Granulocytes 0.2 10^3/uL (0-0.05); Absolute Lymphocytes 1.9 10^3/uL (1.2-3.4); Absolute Monocytes 0.7 10^3/uL (0.1-0.6); Absolute Neutrophils 13.4 10^3/uL (1.4-6.5); Hematocrit 45.6 % (37.0-47.0); Hemoglobin 16.3 g/dL (12.0-16.0); Mean Corp Hgb Conc. 35.7 g/dL (33.0-37.0); Mean Corpuscular Hgb 30.9 pg (27.0-31.0); Mean Corpuscular Volume 86.5 fL (81.0-99.0); Mean Platelet Volume 8.9 fL (7.4-10.4); Nucleated Red Blood Cells % 0 %; Platelet Count 290 10^3/uL (130-400); Red Blood Cell Count 5.27 10^6/uL (4.20-5.40); Red Cell Dist. Width 13.2 % (11.5-14.5); White Blood Cell Count 16.5 10^3/uL (4.8-10.8)
[2025-01-04] MEDS: NSS 1000 IV ×2 (22:40→23:56)
[2025-01-04] MEDS: ZOFRAN 4 MG IV (22:41)
[2025-01-04] MEDS: TORADOL 30 MG IV (22:43)
[2025-01-04] MEDS: PROTONIX IV 40 MG IV (22:45)
[2025-01-04 22:49] LABS: AST (SGOT) 29 U/L (14-36); Albumin 4.8 g/dl (3.5-5.0); Alkaline Phosphatase 75 U/L (38-126); Blood Urea Nitrogen 12 mg/dl (7-17); Calcium 10.3 mg/dl (8.4-10.2); Carbon Dioxide 22 mmol/L (22-30); Chloride 108 mmol/L (98-107); Estimated Creatinine Clearance 76 ml/min; Glucose 149 mg/dl (70-99); Potassium 3.7 mmol/L (3.5-5.1); Sodium 140 mmol/L (135-145); Total Bilirubin 0.4 mg/dl (0.2-1.3); Total Protein 7.3 g/dl (6.3-8.2); eGFR > 60.00
[2025-01-04 22:56] LABS: Troponin I < 0.012 ng/ml
[2025-01-04 22:58] LABS: ALT (SGPT) 41 U/L (0-35); Lipase 215 U/L (23-300)
[2025-01-04] MEDS: HALDOL 2.5 MG IV (22:59)
--- NOTE | 2025-01-04 23:04 | ED.GENMED ---
History of Present Illness
General
Chief Complaint: Abdominal Pain
Source: patient, previous radiology exam (Unremarkable MRCP, CT abdomen pelvis, abdominal ultrasound April 2024) and previous hospital records (Previous hospitalization April 2024 for very similar complaint. Previous ED visit May 2024
for similar complaint)
Exam Limitations: none
Time Seen by Provider: 01/04/25 22:38
Nursing documentation reviewed up to this point in time: agreed with
History of Present Illness
History of Present Illness:
This is a 54-year-old woman with history of anxiety/depression, PTSD, chronic insomnia, GERD, migraine headaches as well as history of chronic right upper quadrant abdominal pain as well as history of intermittent episodes of severe epigastric to
right upper quadrant pain associated with diaphoresis, nausea, vomiting, diarrhea.
Multiple previous ED visits as well as hospitalization April 2024 for very similar severe upper abdominal pain.
Thus far has had multiple repeated unremarkable imaging including CT of the abdomen and pelvis, abdominal ultrasound, unremarkable MRCP and an upper endoscopy April 2024 showing small hiatal hernia, small mucosal nodule in the duodenum otherwise
unremarkable.
She had been maintained on omeprazole 40 mg in the a.m., famotidine 40 mg in the evening but patient has discontinued these stating that the similar pain episodes occur whether she is maintained on acid blockers or not.
Severe epigastric abdominal pain began tonight shortly after dinner which is unusual for her and states abdominal pain generally occurs at nighttime waking her from sleep. She notes several episodes of loose nonbloody stools, significant nausea
with dry heaves, denies hematemesis. She admits to feeling quite restless, diaphoretic. Epigastric abdominal pain radiates to her back. She denies chest pain, no cough no shortness of breath.
She is scheduled for HIDA scan January 23.
Past History
Past History
ED Past Medical History: GERD (Hiatal hernia), Psychiatric (Anxiety/depression, PTSD) and Other (Chronic insomnia, chronic right upper quadrant abdominal pain with intermittent episodes of severe epigastric to right upper quadrant pain)
ED Past Surgical History: Appendectomy, Brain (Meningioma removal), Gynecological (Ovarian cyst removal; hysterectomy), Orthopedic (Cervical discectomy/spinal fusion) and Tonsilectomy
Social History
Tobacco: Non-smoker
Alcohol: Occasional
Drug: Marijuana
Personal: Single
Living: with family
Employment: Employed
Family History
Family History: Other (Noncontributory)
Phy Exam
Physical Exam
Physical Exam:
GENERAL: 54-year-old woman appears her stated age, awake and alert, appears in moderate distress, moderately anxious, mildly diaphoretic.
EYE: anicteric
NECK: Supple, nontender, no meningismus, no significant adenopathy.
ENT: oral mucosa is moist. No rhinorrhea.
CARDIAC: Regular rate and rhythm. no murmur.
LUNGS: Clear breath sounds bilaterally, no acute respiratory distress, no wheezes/rales/rhonchi
ABDOMEN: Soft, nondistended, moderate tenderness epigastric as well as right upper quadrant without rebound or guarding nor rigidity, no cvat. normoactive BS.
NEUROLOGICAL: Alert and oriented x3, no focal neuro deficits.
SKIN: Warm and minimally diaphoretic, normal color, skin intact. No rash.
MUSCULOSKELETAL: No C/C/E. peripheral pulses are full and equal b/l. No palpable tenderness.
PSYCH: Moderately anxious
Course
Orders/Labs/Results
Orders:
Orders
01/04/25 21:37
ECG [Electrocardiogram (*1)] Urgent
Reason for Study: Abdominal Pain
EKG- Treatment ONCE
01/04/25 22:22
IV Insert/Care/Rem.- Treatment PRN
01/04/25 22:28
Complete Blood Count/With Diff Urgent
Comprehensive Metabolic Panel Urgent
Lipase Urgent
Troponin I Urgent
01/04/25 22:38
Ketorolac [Toradol] 30 mg .ROUTE .STK-MED ONE
Ketorolac [Toradol] 30 mg IV NOW STA
Ondansetron Injectable [Zofran] 4 mg .ROUTE .STK-MED ONE
Ondansetron Injectable [Zofran] 4 mg IV NOW STA
Pantoprazole [Protonix IV] 40 mg .ROUTE .STK-MED ONE
Pantoprazole [Protonix IV] 40 mg IV NOW STA
01/04/25 22:39
0.9% Sodium Chloride 1000 ml [Nss] 1,000 ml IV BOLUS
01/04/25 22:50
Haloperidol Lactate [Haldol] 2.5 mg IV NOW STA
01/04/25 22:58
Lactic Acid Urgent
01/04/25 23:37
HYDROmorphone [Dilaudid] 1 mg .ROUTE .STK-MED ONE
HYDROmorphone [Dilaudid] 1 mg IV NOW STA
01/04/25 23:50
0.9% Sodium Chloride 1000 ml [Nss] 1,000 ml IV BOLUS
01/05/25 00:00
Ct Cta A/P W/Wo Urgent
Reason For Exam: severe upper abd pain, elevated lactate
Abnormal Lab Results
01/04/25 01/04/25
22:28 22:58
WBC 16.5 H 10^3/uL
(4.8-10.8)
Hgb 16.3 H g/dL
(12.0-16.0)
Abs Immat Gran (auto) 0.2 H 10^3/uL
(0-0.05)
Absolute Neuts (auto) 13.4 H 10^3/uL
(1.4-6.5)
Absolute Monos (auto) 0.7 H 10^3/uL
(0.1-0.6)
Immature Gran % 1.0 H %
(0-0.5)
Neutrophils % 81.1 H %
(42.2-75.2)
Lymphocytes % 11.5 L %
(20.5-51.1)
Chloride 108 H mmol/L
(98-107)
Glucose 149 H mg/dl
(70-99)
Lactic Acid 3.1 H mmol/L
(0.7-2.0)
Calcium 10.3 H mg/dl
(8.4-10.2)
ALT 41 H U/L
(0-35)
01/04/25 22:28
01/04/25 22:28
Vital Signs
Initial and Last Documented VS:
Initial Vital Signs
Temp Pulse Resp BP Pulse Ox
97.6 F 95 18 136/85 98
01/04/25 21:45 01/04/25 21:45 01/04/25 21:45 01/04/25 21:45 01/04/25 21:45
Last Documented Vital Signs
Temp Pulse Resp BP Pulse Ox
97.6 F 84 14 116/80 99
01/04/25 21:45 01/05/25 01:15 01/05/25 01:15 01/05/25 01:15 01/04/25 22:13
MDM/Problems Addressed
Differential Diagnosis Includes:
Multiple similar episodes of severe epigastric to right upper quadrant pain associated with diaphoresis, nausea, loose stools, restlessness. Quite concerning for acute biliary colic, pancreatitis, other consideration is GERD, gastroduodenitis,
small bowel obstruction, less likely ischemic bowel. ACS is also unlikely.
Has had extensive, repeated evaluations over a number of years without definitive cause.
Extensive review of prior records and of note, at last ED visit May 2020 for patient noted to have significant relief after an IV dose of Haldol.
Thus far has had no relief with IV Toradol, Zofran, Protonix.
Will trial an IV dose of Haldol. IV fluids are infusing. She remains hemodynamically stable.
EKG shows normal sinus rhythm/sinus arrhythmia, no acute ST-T wave abnormalities and similar/unchanged from previous EKGs.
Labs are pending. During hospitalization in April noted to have elevated lactic acid thus will check lactate level.
Due to previous unremarkable extensive imaging studies, will hold off on repeat studies for now.
*Radiology
Radiology exam reviewed: radiology read reviewed
*Pulse Oximetry
Patient hypoxic: no
*EKG
Interpreted by ED Provider?: Yes
Comparison EKG: no changes (Unchanged from previous May 2024)
Rate: normal
Rhythm: sinus and sinus arrhythmia
[place]: normal axis
Interval: normal interval
QRS Pattern: normal QRS
Ischemia: no ischemia
*Cath Lab Technologist Interpretation
Rate: normal
Interpretation: normal
Rhythm: sinus
*Critical Care Note
Total Time (30-74mins, 75-104mins- exclusive of procedures): Not Applicable
Update Note
Update Note:
23:50
No improvement with IV Haldol but now mild/moderate improvement after an IV dose of Dilaudid.
No further nausea.
Labs are remarkable for elevated white blood cell count of 16.5. Similar elevations noted previously.
Chemistries are unremarkable. Random glucose minimally elevated at 149.
Lactic acid mildly elevated at 3.1, similar elevations noted previously. With elevated lactic acid, continued severe epigastric to right upper quadrant abdominal pain, concern for potential ischemia thus will check CT angiogram of the abdomen and
pelvis.
Will continue IV fluid bolus.
01:30
Patient is currently comfortable, mild tenderness epigastric, right upper quadrant. Patient reports pain 2 out of 10�at her baseline chronic daily upper abdominal pain.
No further nausea.
CAT scan shows gastric wall thickening with moderate distention concerning for gastritis. No bowel obstruction.
There is note of multicystic right adnexal lesion measuring up to 6.9 x 6.1 cm which is new compared to previous CAT scan April 2024.
Patient continues to have no lower abdominal discomfort.
Will trial oral fluids and if tolerated without increase in pain or nausea will plan for discharge to home with recommendations for follow-up with GI.
Due to concern for gastritis would recommend resumption of PPI and famotidine.
Recommend follow-up with SENIOR INTERACTIVE PRODUCER regarding right ovarian cyst.
ED Attending Note
-
Portions of this chart may have been created with voice recognition software.� Occasional wrong word or��sound alike� substitutions may have occurred due to the inherent limitations of voice recognition software.
Discharge Plan
Departure
Patient Disposition: Home (Routine Discharge)
Date of Disposition: 01/05/25
Time of Disposition: 02:08
Patient with high blood pressure during this ER visit?: No
Condition: Good
Discharge Problem:
Abdominal pain, acute, epigastric, Acute exacerbation of chronic abdominal pain, Gastritis
Instructions: Abdominal Pain
Prescriptions:
New
pantoprazole [Protonix] 40 mg tablet,delayed release (DR/EC)
40 mg PO DAILY Qty: 30 1RF
famotidine 40 mg tablet
40 mg PO HS Qty: 30 1RF
No Action
buspirone 10 mg Tablet
10 mg PO DAILY
therapeutic multivitamin Tablet
1 tab PO DAILY
buspirone 10 mg tablet
10 mg PO HSPRN PRN (Reason: stress)
famotidine 40 mg tablet
40 mg PO HS Qty: 30 0RF
Referrals:
Myrtle Arriaza PA [Family Provider, Family Practice] - Call in 1-3 days for appt
Activity Restrictions/Additional Instructions:
Resume your famotidine and omeprazole.
Follow-up with criminology professor for further evaluation.
Interventions
Interventions:
*Risk Screen - Suicide Last Done: 01/04/25 22:16
*General Assessment Last Done: 01/04/25 21:45
*Neglect/Abuse Screening Last Done: 01/04/25 21:45
*ED- Fall Risk Assessment Last Done: 01/04/25 23:08
YK-Ytjtxi-Qwtpbiwsus Assessment Last Done: 01/04/25 23:04
Discharge Date and Time
Print Language: [id number]
--- NOTE | 2025-01-04 23:06 | EDRN ---
Pt writhing on stretcher unable to get comfortable. Frequent belching. Pt's son at bedside ate same food for dinner and feels fine. Pt uses marijuana at bedtime for sleep - last used last night.
[2025-01-04 23:12] VITALS: BP 111/72
[2025-01-04 23:14] LABS: Lactic Acid 3.1 mmol/L (0.7-2.0)
[2025-01-04] MEDS: DILAUDID 1 MG IV (23:38)
[2025-01-05] VITALS: BP 118/77
[2025-01-05 01:15] VITALS: BP 116/80
== END 2025-01-05 02:20 | disposition home or self-care (01) ==
LOC: EMR 21:36
PROVIDERS: EMERGENCY PHYSICIAN Emergency Medicine; FAMILY PHYSICIAN Physician Assistant
DX: G89.29 Other chronic pain (principal); R10.9 Unspecified abdominal pain; F41.8 Other specified anxiety disorders; F43.10 Post-traumatic stress disorder, unspecified; F51.04 Psychophysiologic insomnia; K21.9 Gastro-esophageal reflux disease without esophagitis; E87.20 Acidosis, unspecified; K29.70 Gastritis, unspecified, without bleeding; Z90.49 Acquired absence of other specified parts of digestive tract; Z90.710 Acquired absence of both cervix and uterus; Z98.1 Arthrodesis status
CPT/HCPCS: 99284; 74174; 80053; 83605; 83690; 84484; 85025; 93005; Q9967

== ENCOUNTER → 2025-01-09 15:31 | Outpatient (REF) | payer BC, SELFPAY | LOC: RAD 15:31 | PROVIDERS: ATTENDING PHYSICIAN Physician Assistant; REFERRING PHYSICIAN Obstetrics & Gynecology | DX: N32.89 Other specified disorders of bladder (principal); R34 Anuria and oliguria | CPT/HCPCS: 76770 ==

== ENCOUNTER → 2025-01-23 07:29 | Outpatient (REF) | payer BC, SELFPAY | LOC: RAD 07:29 | PROVIDERS: ATTENDING PHYSICIAN Internal Medicine Gastroenterology; FAMILY PHYSICIAN Physician Assistant | DX: R10.9 Unspecified abdominal pain (principal); R10.13 Epigastric pain | CPT/HCPCS: 78227; A9537; J2805 ==

== ENCOUNTER 2025-03-18 06:49 | Emergency (ER) | payer BC, SELFPAY ==
[2025-03-18] VITALS (11 sets, daily range): BP systolic 101–139; BP diastolic 62–120; BMI 25.1
--- NOTE | 2025-03-18 07:08 | ED.GENMED ---
History of Present Illness
General
Chief Complaint: Chest Pain
Source: patient
Exam Limitations: none
Time Seen by Provider: 03/18/25 07:01
History of Present Illness
History of Present Illness:
55-year-old female recently started hormone replacement therapy presented with sudden onset epigastric pain and lower chest discomfort. She notes associated shortness of breath. She states she keeps belching. She recently had a hysterectomy
secondary to an ovarian cyst. No recent travel or surgery. No leg swelling or calf pain. No fever or cough. No vomiting. No other complaints
Past History
Past History
ED Past Medical History: GERD (Hiatal hernia), Psychiatric (Anxiety/depression, PTSD) and Other (Chronic insomnia, chronic right upper quadrant abdominal pain with intermittent episodes of severe epigastric to right upper quadrant pain)
ED Past Surgical History: Appendectomy, Brain (Meningioma removal), Gynecological (Ovarian cyst removal; hysterectomy), Orthopedic (Cervical discectomy/spinal fusion) and Tonsilectomy
Social History
Tobacco: Non-smoker
Alcohol: Occasional
Drug: Marijuana
Personal: Single
Living: with family
Employment: Employed
Family History
Family History: Other (Noncontributory)
Phy Exam
Physical Exam
Physical Exam:
General: Anxious appearing female hyperventilating
HEENT normocephalic atraumatic
Heart: Regular rate and rhythm
Lungs: Tachypneic but clear
Abdomen soft mild tenderness to epigastric region negative Santos sign no guarding or rebound nondistended
Extremities no edema no calf tenderness
Skin is warm no rash
Scores
Heart Score for Chest Pain Patients
STEMI patient?: No
History: Slightly or Non-Suspicious
ECG: Normal
Age: >45 - <65 years
Risk Factors: 1 or 2 Risk Factors
Troponin: </= Normal Limit
Heart Score for Chest Pain Patients: 2
Heart Score Risk: 2.5% MACE over next 6 weeks
Course
Orders/Labs/Results
Orders:
Orders
03/18/25 06:50
Electrocardiogram (*1) Urgent
Reason for Study: Chest Pain
03/18/25 06:51
EKG- Treatment ONCE
03/18/25 07:03
Complete Blood Count/With Diff Urgent
Troponin I Urgent
03/18/25 07:08
CT Chest PE Study Urgent
Comment:
Reason For Exam: chest pain, on HRT
03/18/25 07:18
HYDROmorphone [Dilaudid] 0.5 mg IV NOW STA
Ondansetron Injectable [Zofran] 4 mg IV NOW STA
03/18/25 07:19
HYDROmorphone [Dilaudid] 0.5 mg .ROUTE .STK-MED ONE
Ondansetron Injectable [Zofran] 4 mg .ROUTE .STK-MED ONE
03/18/25 07:47
Comprehensive Metabolic Panel Urgent
Comment: [facility]
Lipase Urgent
Comment: ADDON
03/18/25 08:26
HYDROmorphone [Dilaudid] 1 mg .ROUTE .STK-MED ONE
HYDROmorphone [Dilaudid] 1 mg IV NOW STA
03/18/25 08:58
Add On- LAB Urgent
Tests Added?: lipase
03/18/25 10:00
diazePAM [Valium Injection] 5 mg IV NOW STA
03/18/25 10:53
US Abdomen Complete/Upper Urgent
Comment:
Reason For Exam: ruq pain
Abnormal Lab Results
03/18/25 03/18/25
07:03 07:47
WBC 14.9 H 10^3/uL
(4.8-10.8)
Hgb 16.2 H g/dL
(12.0-16.0)
MCH 31.4 H pg
(27.0-31.0)
Abs Immat Gran (auto) 0.1 H 10^3/uL
(0-0.05)
Absolute Neuts (auto) 11.0 H 10^3/uL
(1.4-6.5)
Absolute Monos (auto) 0.7 H 10^3/uL
(0.1-0.6)
Immature Gran % 0.7 H %
(0-0.5)
Lymphocytes % 17.8 L %
(20.5-51.1)
Chloride 110 H mmol/L
(98-107)
Carbon Dioxide 21 L mmol/L
(22-30)
Glucose 149 H mg/dl
(70-99)
AST 37 H U/L
(14-36)
ALT 50 H U/L
(0-35)
03/18/25 07:03
03/18/25 07:47
Vital Signs
Initial and Last Documented VS:
Initial Vital Signs
Temp Pulse Resp BP Pulse Ox
97.6 F 77 22 101/84 100
03/18/25 07:02 03/18/25 07:02 03/18/25 07:02 03/18/25 07:02 03/18/25 07:02
Last Documented Vital Signs
Temp Pulse Resp BP Pulse Ox
97.6 F 83 11 106/62 100
03/18/25 07:02 03/18/25 12:58 03/18/25 12:58 03/18/25 11:00 03/18/25 11:00
MDM/Problems Addressed
Differential Diagnosis Includes:
Patient with lower chest and upper abdominal pain recent initiation of hormone replacement therapy. Consider PE versus gastritis versus ulcer versus pancreatitis
EKG shows sinus rhythm without ischemic changes. Labs pending. Given home replacement therapy will order CT PE study
*Pulse Oximetry
SaO2: 100
Oxygen Mode of Delivery: Room air
Patient hypoxic: no
*Critical Care Note
Total Time (30-74mins, 75-104mins- exclusive of procedures): Not Applicable
Update Note
Update Note:
Workup here unremarkable. PE study negative. Ultrasound abdomen ordered as the pain goes around to her flank. This was negative for acute finding as well. Patient expresses her frustration with lack of answers. She has had the symptoms before.
Recommend she follow-up with her treating physicians but no indication for admission
ED Attending Note
-
Portions of this chart may have been created with voice recognition software.� Occasional wrong word or��sound alike� substitutions may have occurred due to the inherent limitations of voice recognition software.
Discharge Plan
Departure
Patient Disposition: Home (Routine Discharge)
Date of Disposition: 03/18/25
Time of Disposition: 13:48
Patient with high blood pressure during this ER visit?: No
Discharge Problem:
Abdominal pain
Instructions: Abdominal pain in adults - Discharge instructions
Prescriptions:
No Action
buspirone 10 mg Tablet
10 mg PO DAILY
therapeutic multivitamin Tablet
1 tab PO DAILY
buspirone 10 mg tablet
10 mg PO HSPRN PRN (Reason: stress)
famotidine 40 mg tablet
40 mg PO HS Qty: 30 0RF
pantoprazole [Protonix] 40 mg tablet,delayed release (DR/EC)
40 mg PO DAILY Qty: 30 1RF
famotidine 40 mg tablet
40 mg PO HS Qty: 30 1RF
Referrals:
Myrtle Arriaza PA [Family Provider, Family Practice]
Activity Restrictions/Additional Instructions:
Continue current medication regimen. Follow-up with your treating doctors. Return here if worse otherwise.
Interventions
Interventions:
*Risk Screen - Suicide Last Done: 03/18/25 06:51
*General Assessment Last Done: 03/18/25 06:51
*Neglect/Abuse Screening Last Done: 03/18/25 06:51
*ED- Fall Risk Assessment Last Done: 03/18/25 07:04
*ED COVID-19 Vaccine History Last Done: 03/18/25 07:04
ED- Cardiac Assessment Last Done: 03/18/25 07:04
Discharge Date and Time
Print Language: [place]ET[place]
[2025-03-18] MEDS: DILAUDID 0.5 MG IV (07:21)
[2025-03-18] MEDS: ZOFRAN 4 MG IV (07:21)
[2025-03-18 07:28] LABS: Hematocrit 46.8 % (37.0-47.0); Hemoglobin 16.2 g/dL (12.0-16.0); Mean Corp Hgb Conc. 34.6 g/dL (33.0-37.0); Mean Corpuscular Volume 90.7 fL (81.0-99.0); Nucleated Red Blood Cells % 0 %; Platelet Count 307 10^3/uL (130-400); Red Cell Dist. Width 13.4 % (11.5-14.5)
[2025-03-18 08:00] LABS: Troponin I < 0.012 ng/ml
[2025-03-18 08:21] LABS: ALT (SGPT) 50 U/L (0-35); AST (SGOT) 37 U/L (14-36); Albumin 4.7 g/dl (3.5-5.0); Alkaline Phosphatase 80 U/L (38-126); Blood Urea Nitrogen 13 mg/dl (7-17); Calcium 9.6 mg/dl (8.4-10.2); Carbon Dioxide 21 mmol/L (22-30); Chloride 110 mmol/L (98-107); Estimated Creatinine Clearance 86 ml/min; Glucose 149 mg/dl (70-99); Potassium 4.3 mmol/L (3.5-5.1); Sodium 140 mmol/L (135-145); Total Protein 7.0 g/dl (6.3-8.2); eGFR > 60.00
[2025-03-18] MEDS: DILAUDID 1 MG IV (08:29)
[2025-03-18 09:50] LABS: Lipase 203 U/L (23-300)
[2025-03-18] MEDS: VALIUM INJECTION 5 MG IV (10:12)
== END 2025-03-18 14:10 | disposition home or self-care (01) ==
LOC: EMR 06:49
PROVIDERS: EMERGENCY PHYSICIAN Student in an Organized Health Care Education/Training Program; FAMILY PHYSICIAN Physician Assistant
DX: R10.13 Epigastric pain (principal); K21.9 Gastro-esophageal reflux disease without esophagitis; K44.9 Diaphragmatic hernia without obstruction or gangrene; F41.9 Anxiety disorder, unspecified; F32.A Depression, unspecified; F43.10 Post-traumatic stress disorder, unspecified; F51.04 Psychophysiologic insomnia; Z79.890 Hormone replacement therapy; Z90.710 Acquired absence of both cervix and uterus
CPT/HCPCS: 99284; 96374; 96375 ×3; 96376 ×2; 71275; 76700; 80053; 83690; 84484; 85025; 93005; Q9967

== ENCOUNTER 2025-03-18 16:11 | Emergency (ER) | payer BC, SELFPAY ==
[2025-03-18 16:18] VITALS: BP 126/92
[2025-03-18 16:40] LABS: Hematocrit 46.2 % (37.0-47.0); Hemoglobin 16.2 g/dL (12.0-16.0); Mean Corp Hgb Conc. 35.1 g/dL (33.0-37.0); Mean Corpuscular Volume 89.4 fL (81.0-99.0); Nucleated Red Blood Cells % 0 %; Platelet Count 319 10^3/uL (130-400); Red Cell Dist. Width 13.2 % (11.5-14.5)
[2025-03-18 17:01] LABS: Troponin I < 0.012 ng/ml
[2025-03-18 17:02] LABS: ALT (SGPT) 51 U/L (0-35); AST (SGOT) 38 U/L (14-36); Albumin 5.1 g/dl (3.5-5.0); Alkaline Phosphatase 86 U/L (38-126); Blood Urea Nitrogen 11 mg/dl (7-17); Calcium 10.3 mg/dl (8.4-10.2); Carbon Dioxide 18 mmol/L (22-30); Chloride 109 mmol/L (98-107); Glucose 152 mg/dl (70-99); Potassium 4.2 mmol/L (3.5-5.1); Sodium 140 mmol/L (135-145); Total Protein 7.9 g/dl (6.3-8.2); eGFR > 60.00
== END 2025-03-18 16:38 ==
LOC: EMR 16:11
PROVIDERS: Emergency Medicine
DX: Z53.21 Procedure and treatment not carried out due to patient leaving prior to being seen by health care provider (principal)
CPT/HCPCS: 80053; 84484; 85025; 93005